=== PATIENT | female | born 1955 | race Caucasian/White ===

== ENCOUNTER 2023-10-17 10:30 | Outpatient (RCR) | payer MEDICARE, OTHER, SELFPAY | END 2023-11-07 15:06 | disposition home or self-care (01) | LOC: PT 10:30 | PROVIDERS: PCP Internal Medicine; Visit Provider Orthopaedic Surgery | DX: M17.12 Unilateral primary osteoarthritis, left knee (principal); Z96.652 Presence of left artificial knee joint; M25.562 Pain in left knee; R26.89 Other abnormalities of gait and mobility; R26.9 Unspecified abnormalities of gait and mobility | CPT/HCPCS: 97110; 97112; 97161 ==

== ENCOUNTER 2023-12-06 07:18 | Outpatient (OUT) | payer MEDICARE, OTHER, SELFPAY ==
--- OUTSIDE RECORDS SUMMARY | 2023-12-06 07:20 | XMS_ITS | CCD ---
Author Name Unknown Address [facility] [place] [id number] Organization [facility] Care Team Providers Care Supervisor Shop Name Role Phone DIAB ., OCTAVIA Admitting Unavailable DIAB ., OCTAVIA Attending Unavailable GRECHNY ., MARY RAMIREZ Consulting Unavailabl e GERALDO, DR RAMIREZ Primary Care Unavailable PAVAN, AMALIA Consulting Unavailable REQUEST, NONE LISTED Admitting Unavaila ble REQUEST, NONE LISTED Attending Unavaila ble GERALDO, DR RAMIREZ Primary Care Unavailable HALIES, DR RAMIREZ Consulting Unavailable REQUEST, NONE LISTED Consulting Unavaila ble JOSSY, DR ALISA Guzman Attending Unavailable CATHLEEN, DR MOUSTAPHA Guzman Consulting Unavailable YUHAS, DR RAMIREZ Primary Care Unavailable JOSSY, DR ALISA Guzman Admitting Unavailable KUNS, DR ALISA Guzman Consulting Unavailable Rubi BERMUDEZ, Delfino Aleman Attending Unavaila ble Yuharey BEDOYA, Ashley Márquez [facility] Unavailab Jaylin BERMUDEZ, Delfino Aleman Attending Unavaila ble Yuhas DO, Ashley Márquez Primary [facility] UnavailSanjeev Pate Consulting Unavailable Rubi BERMUDEZ, Delfino Aleman Admitting Unavaila ble Rubi BERMUDEZ, Delfino Aleman Attending Unavaila ble Yuhas , Ashley Willi [facility] Unavailab ALISA Navarro Attending Unavailable YUJEANNA, ASHLEY Camarena Referring Unavailable ASHLEY CHOW Primary Care Unavailable COSMO MIKE Attending Unavailable Problems Active Problems Problem Classification Problem Date Documented Date Episodic/Chronic Disorders of lipid metabolism (5 sources) Mixed hyperlipidemia; Translations: [MIXED HYPERLIPIDEMIA] Onset: 11-13-2022 Chronic Essential hypertension (2 sources) Essential (primary) hypertension; Translations: [ESSENTIAL PRIMARY HYPERTENSION] Onset: 11-13-2022 Chronic Fluid and electrolyte disorders (1 source) Hypokalemia; Translations: [HYPOKALEMIA] Onset: 04-30-2023 Episodic Genitourinary symptoms and ill-defined conditions (1 source) Unspecified symptoms and signs involving the genitourinary system; Translations: [Unspecified symptoms and signs involving the genitourinary system] Onset: 11-18-2023 Episodic Intestinal infection (1 source) Rotaviral enteritis; Translations: [ROTAVIRAL ENTERITIS] Onset: 04-30-2023 Episodic Nausea and vomiting (3 sources) Nausea with vomiting, unspecified; Translations: [NAUSEA WITH VOMITING UNSPECIFIED] Onset: 04-29-2023 Episodic Other aftercare (1 source) supervisor intermediates (current) use of aspirin; Translations: [CARE HOME CURRENT USE OF ASPIRIN] Onset: 04-30-2023 Episodic Other aftercare (1 source) Other terminal carman (current) drug therapy; Translations: [OTH WORKERS COMPENSATION CLAIMS EXAMINER CURRENT DRUG THERAPY] Onset: 04-30-2023 Episodic Other screening for suspected conditions (not mental disorders or infectious disease) (2 sources) Encounter for screening mammogram for malignant neoplasm of breast; Translations: [ENC SCR MAMMO MALIG NEOPLASM BREAST] Onset: 12-09-2022 Episodic Thyroid disorders (2 sources) Hypothyroidism, unspecified; Translations: [HYPOTHYROIDISM UNSPECIFIED] Onset: 11-13-2022 Chronic Unclassified (1 source) CONTACT W/AND (SUSP) EXPOS COVID-19; Translations: [CONTACT W/AND (SUSP) EXPOS COVID-19] Onset: 04-30-2023 Urinary tract infections (1 source) Urinary tract infectious disease Onset: 11-18-2023 Episodic Past or Other Problems Problem Classification Problem Date Documented Da te Episodic/Chronic Residual codes; unclassified (1 source) Family history of malignant neoplasm of trachea, bronchus and lung; Translations: [FAM HX MALIG NEOPLSM TRACH BRON LNG] Onset: 12-09-2022 Episodic Results Test Name Value Interpretation Reference Range Facility .eGFRon 10-16-2023 GFR/1.73 sq M.predicted MDRD (S/P/Bld) [Vol rate/Area] mL/min/{1.73_m2} Normal >=60 [facility] Comment on above: Result Comment: [facility] have implemented the eGFR calculation approach that does not have a coefficient for race and that conforms to the NKF-ASN Task Force Recommendations. Stages of Chronic Kidney Disease GFR Stage 3a Mild to moderate loss of kidney function 59 to 45 Stage 3b Moderate to severe loss of kidney function 44 to 33 Stage 4 Severe loss of kidney function 29 to 15 Stage 5 Kidney failure Less than 15 GFR calculated using the CKD-Epi Creatinine Equation (2020): eGFR = 142 X min(SCr/?, 1)? X max(SCr /?, 1)-1.200 X 0.9938Age X 1.012 [if female] Abbreviations/Units: eGFR (estimated glomerular filtration rate) = mL/min/1.73 m2 SCr (standardized serum creatinine) = mg/dL ? = 0.7 (females) or 0.9 (males) ? = -0.241 (females) or -0.302 (males) min = indicates the minimum of SCr/? or 1 max = indicates the maximum of SCr/? or 1 Age = years Performed By: #### E GFR #### [address] [address] Basic Metabolic Profileon Anion gap [Moles/Vol] 9 mmol/L Normal 7-17 [facility] Comment on above: Performed By: #### C [id number] #### [address] [address] Calcium [Mass/Vol] 8.7 mg/dL Normal 8.5-10.3 [facility] Comment on above: Performed By: #### C [id number] #### [address] [address] Chloride [Moles/Vol] 106 mmol/L Normal 98-110 [facility] Comment on above: Performed By: #### C [id number] #### [address] [address] CO2 [Moles/Vol] 24 mmol/L Normal 22-32 [facility] Comment on above: Performed By: #### C [id number] #### [address] [address] Creatinine [Mass/Vol] 0.65 mg/dL Normal 0.44-1.03 [facility] Comment on above: Performed By: #### C [id number] #### [address] [address] Glucose [Mass/Vol] 161 mg/dL High 70-99 [facility] Comment on above: Performed By: #### C [id number] #### [address] [address] Potassium [Moles/Vol] 4.3 mmol/L Normal 3.4-4.8 [facility] Comment on above: Performed By: #### C [id number] #### [address] [address] Sodium [Moles/Vol] 135 mmol/L Normal 133-142 [facility] Comment on above: Performed By: #### C [id number] #### [address] [address] Urea nitrogen [Mass/Vol] 15 mg/dL Normal 8-26 [facility] Comment on above: Performed By: #### C [id number] #### [address] [address] Urea nitrogen/Creatinine [Mass ratio] 23.1 mg/mg High 10.0-20.0 [facility] Comment on above: Performed By: #### C [id number] #### [address] [address] CBC w/ Diffon 10-16-2023 Erythrocyte distribution width (RBC) [Ratio] 12.7 % Normal 11.6-14.8 [facility] Comment on above: Performed By: #### C BC #### [address] [address] Hematocrit (Bld) [Volume fraction] 35.2 % Low 36.0-46.0 [facility] Comment on above: Performed By: #### C BC #### [address] [address] Hemoglobin (Bld) [Mass/Vol] 11.9 g/dL Low 12.0-16.0 [facility] Comment on above: Performed By: #### C BC #### [address] [address] MCH (RBC) [Entitic mass] 30.9 pg Normal 27.0-35.0 [facility] Comment on above: Performed By: #### C BC #### [address] [address] MCHC 33.7 % Normal 31.0-37.0 [facility] Comment on above: Performed By: #### C BC #### [address] [address] MCV (RBC) [Entitic vol] 91.6 fL Normal 80.0-100.0 [facility] Comment on above: Performed By: #### C BC #### [address] [address] Platelet 277 x10*3/mcL Normal 150-450 [facility] Comment on above: Performed By: #### C BC #### [address] [address] Platelet mean volume (Bld) [Entitic vol] 7.9 fL Normal 6.7-10.6 [facility] Comment on above: Performed By: #### C BC #### [address] [address] RBC 3.84 x10*6/mcL Normal 3.80-5.20 [facility] Comment on above: Performed By: #### C BC #### [address] [address] WBC 20.7 x10*3/mcL High 4.5-11.0 [facility] Comment on above: Performed By: #### C BC #### [address] [address] Diff Autoon 10-16-2023 Baso Absolute 0.0 x10*3/mcL Normal 0.0-0.2 [facility] Comment on above: Performed By: #### . Automated Diff #### [address] [address] Basophils/100 WBC (Bld) 0.2 % Normal 0.0-1.5 [facility] Comment on above: Performed By: #### . Automated Diff #### [address] [address] Eos Absolute 0.0 x10*3/mcL Normal 0.0-0.4 [facility] Comment on above: Performed By: #### . Automated Diff #### [address] [address] Eosinophils/100 WBC (Bld) 0.0 % Normal 0.0-5.4 [facility] Comment on above: Performed By: #### . Automated Diff #### [address] [address] Lymph Absolute 0.9 x10*3/mcL Low 1.0-4.8 [facility] Comment on above: Performed By: #### . Automated Diff #### [address] [address] Lymphocytes/100 WBC (Bld) 4.3 % Low 27.2-40.8 [facility] Comment on above: Performed By: #### . Automated Diff #### [address] [address] Lamar Absolute 0.6 x10*3/mcL Normal 0.1-1.1 [facility] Comment on above: Performed By: #### . Automated Diff #### [address] [address] Monocytes/100 WBC (Bld) 2.8 % Low 3.7-11.9 [facility] Comment on above: Performed By: #### . Automated Diff #### [address] [address] Neutro Absolute 19.2 x10*3/mcL High 1.8-7.7 [facility] Comment on above: Performed By: #### . Automated Diff #### [address] [address] Neutro Auto 92.7 % High 47.2-70.8 [facility] Comment on above: Performed By: #### . Automated Diff #### [facility] [address] [place] [address] Inpatient Clinical Summaryon 10-16-2023 Inpatient Clinical Summary [facility] [address] [place] [address] [address] Clinical Summary Person Information Name: Makenzie Miller Age: 67 Years : 1955 Sex: Female PCP: Ashley Chow DO Marital Status: Phone: PCP: [phone] Race: White Ethnicity: Not or Language: East Timorese Visit Id: Visit Reason: Speciality: Acuity: Enc Type: Observation Med Service: Surgery Arrival: 10/15/2023 07:07:27 Discharge: Dispo Type: Address: [address] [place] [phone] Diagnosis: Status post total left knee replacement Discharged To: Home Treatments: Devices/Equipment: Professional Skilled Services: Special Services and Community Resources: Mode of Discharge Transportation: Discharge Orders Activity Restrictions Activity as tolerated-follow precautions. Activity Restrictions Continue to use your walker, crutches or cane as instructed by your physical therapist. Your therapist will tell you when you can discontinue use of walking aids. For many patients walking aids are needed only for the first few days after surgery. Activity Restrictions Exercise twice a day using the exercises on the therapy instructions sheet. It is good to continue this exercise regimen indefinitely. Activity Restrictions Walking is the best form of exercise. Begin with 15 minutes 3-4 times per day. Increase your walking time as tolerated. Activity Restrictions Continue to wear the anti-embolic (ANA) stockings 22-24 hours per day for 4 weeks as tolerable. Activity Restrictions If the stockings are extremely uncomfortable and intolerable, you may discontinue them. You may use nate bandage wrapped from foot to mid-thigh Activity Restrictions Sexual activity may resume when comfortable within range of motion precautions. Discharge Patient Education Review and attach ORTHO Ruib Hip/Knee Inpatient Discharge Special Instructions Bruising may occur in the thigh for knee replacement patients. Do not be alarmed if this occurs. Discharge Special Instructions Common symptoms after total joint replacement surgery include: redness, bruising, drainage, or swelling at the incision site. If there symptoms progressively worsen and do not subside after rest, elevating and icing, please contact your doctor. Discharge Special Instructions You may use your cooling device continuously with a cloth between the cuff and your skin. Alternatively, apply ice to operative area 20 minutes per hour while awake. Apply cloth between ice and skin for protection. Discharge Special Instructions Patient should attempt to control pain with Tylenol and Anti-Inflammatory (if prescribed) initially. If pain is not controlled then use narcotic pain medication. Discharge Special Instructions Maintain a reasonable weight to avoid stress on your hip or knee and other joints. Discharge Special Instructions Inform all doctors who are treating you, including your dentist that you have a total joint implant. Some long-term precautions may need to be taken. Discharge Special Instructions Avoid all dental procedures and cleanings for 90 days after your surgery. Discharge Special Instructions If your dentist feels manipulation of your gum/teeth may introduce bacteria into your blood, they will need to prescribe antibiotics. Discharge Special Instructions Watch for these warning sign/symptoms and call your doctor if any occurs: Trouble breathing or shortness of breath; Prolonged nausea or vomiting; Chills or fever above 101 degrees F; Pain getting worse or not being helped by pain medication. Discharge Wound Care Leave the Mepilex bandage in place for one week after your surgery, then remove. Then replace with extra dressing given at time of discharge and leave intact until follow up appointment. Allergies No Known Allergies Functional Status: Sensory Deficits: None History of Falls: Mobility Assistance Prior to Admission: ADLs: Independent Gait: Steady Ambulation Assist: Assistive Device: Special Orthopedic Devices: Current Level of Assistance for Self-Care/Mobility: Cognitive Status: Orientation: Orientation Assessment Oriented x 4 Level of Consciousness: Alert Characteristics of Speech: Clear Aspiration Risk: None Affect/Behavior: Appropriate, Calm, Cooperative Laboratory or Other Results This Visit (last charted value for your 10/15/2023 visit) Hematology 10/16/2023 5:14 AM WBC: 20.7 x10 RBC: 3.84 x10 Neutro Auto: 92.7 % -- Normal range between ( 47.2 and 70.8 ) Lymph Auto: 4.3 % -- Normal range between ( 27.2 and 40.8 ) Lamar Auto: 2.8 % -- Normal range between ( 3.7 and 11.9 ) Eos Auto: 0.0 % -- Normal range between ( 0.0 and 5.4 ) Basophil Auto: 0.2 % -- Normal range between ( 0.0 and 1.5 ) Baso Absolute: 0.0 x10 MCV: 91.6 fL -- Normal range between ( 80.0 and 100.0 ) MCHC: 33.7 % -- Normal r (more content not included)... Normal [facility] Orthopedic Progress Noteon 1 12-16-2022 Orthopedic Progress Note Orthopedic: Postoperative day #1 status post left total knee replacement Subjective: Patient states that they're doing quite well with no specific complaints at this time. Patient wishes at this time to be discharged to home. Objective: The patient's dressings is dry. Range of motion of the left knee is 0-100. There is no signs of drop foot. There is no sign of DVT or infection. Patient has good pedal pulse, and capillary refill is less than 2 seconds. Vital Signs (last 24 hrs) Last Charted Temp Oral 36.6 degC (OCT 16:) Heart Rate Peripheral 89 bpm (OCT 16:) Resp Rate 16 br/min (OCT 16:) SBP 131 mmHg (OCT 16:00) DBP 61 mmHg (OCT 16:) SpO2 95 % (OCT 16:) Weight 72 kg (OCT 16:) Height 160.02 cm (OCT 15 13:51) BMI 26.92 (OCT 15 13:51) Labs (Last four charted values) WBC H 20.7 (OCT 16) Hgb L 11.9 (OCT 16) Hct L 35.2 (OCT 16) Plt 277 (OCT 16) Na 135 (OCT 16) K 4.3 (OCT 16) CO2 24 (OCT 16) Cl 106 (OCT 16) Cr 0.65 (OCT 16) BUN 15 (OCT 16) Physical Therapy Results Event Name Event Result Date/Time Ambulation Distance 24 10/16/23 06:00:00 Ambulation Distance 24 10/16/23 03:00:00 Ambulation Distance 200 10/15/23 18:00:00 Ambulation Distance 30 10/15/23 16:00:00 Assessment: Status post left total knee replacement Plan: At this time we plan to discharge the patient home. The patient will be discharged to home with assistance from family and friends. All other questions have been answered to the patient's satisfaction. The patient will follow-up in 10-[address] Cota or myself. Electronically signed by Sanjeev Gallardo PA-C 10/16/23 07:41 EST Normal [facility] .eGFRon 09-25-2023 GFR/1.73 sq M.predicted MDRD (S/P/Bld) [Vol rate/Area] mL/min/{1.73_m2} Normal >=60 [facility] Comment on above: Result Comment: [facility] have implemented the eGFR calculation approach that does not have a coefficient for race and that conforms to the NKF-ASN Task Force Recommendations. Stages of Chronic Kidney Disease GFR Stage 3a Mild to moderate loss of kidney function 59 to 45 Stage 3b Moderate to severe loss of kidney function 44 to 33 Stage 4 Severe loss of kidney function 29 to 15 Stage 5 Kidney failure Less than 15 GFR calculated using the CKD-Epi Creatinine Equation (2020): eGFR = 142 X min(SCr/?, 1)? X max(SCr /?, 1)-1.200 X 0.9938Age X 1.012 [if female] Abbreviations/Units: eGFR (estimated glomerular filtration rate) = mL/min/1.73 m2 SCr (standardized serum creatinine) = mg/dL ? = 0.7 (females) or 0.9 (males) ? = -0.241 (females) or -0.302 (males) min = indicates the minimum of SCr/? or 1 max = indicates the maximum of SCr/? or 1 Age = years Performed By: #### E GFR #### [address] [address] CBC w/ Diffon 09-25-2023 Erythrocyte distribution width (RBC) [Ratio] 12.6 % Normal 11.6-14.8 [facility] Comment on above: Performed By: #### C BC #### [address] [address] Hematocrit (Bld) [Volume fraction] 41.6 % Normal 36.0-46.0 [facility] Comment on above: Performed By: #### C BC #### [address] [address] Hemoglobin (Bld) [Mass/Vol] 14.4 g/dL Normal 12.0-16.0 [facility] Comment on above: Performed By: #### C BC #### [address] [address] MCH (RBC) [Entitic mass] 32.1 pg Normal 27.0-35.0 [facility] Comment on above: Performed By: #### C BC #### [address] [address] MCHC 34.6 % Normal 31.0-37.0 [facility] Comment on above: Performed By: #### C BC #### [address] [address] MCV (RBC) [Entitic vol] 92.9 fL Normal 80.0-100.0 [facility] Comment on above: Performed By: #### C BC #### [address] [address] Platelet 294 x10*3/mcL Normal 150-450 [facility] Comment on above: Performed By: #### C BC #### [address] [address] Platelet mean volume (Bld) [Entitic vol] 7.7 fL Normal 6.7-10.6 [facility] Comment on above: Performed By: #### C BC #### [address] [address] RBC 4.47 x10*6/mcL Normal 3.80-5.20 [facility] Comment on above: Performed By: #### C BC #### [address] [address] WBC 8.1 x10*3/mcL Normal 4.5-11.0 [facility] Comment on above: Performed By: #### C BC #### [address] [address] CMPon 09-25-2023 Albumin [Mass/Vol] 4.3 g/dL Normal 3.2-4.9 [facility] Comment on above: Performed By: #### C OMP #### [address] [address] Albumin/Globulin [Mass ratio] 1.4 {ratio} Normal 1.1-2.2 [facility] Comment on above: Performed By: #### C OMP #### [address] [address] Alk Phos 50 IU/L Normal 32-91 [facility] Comment on above: Performed By: #### C OMP #### [address] [address] ALT [Catalytic activity/Vol] 19 U/L Normal 14-54 [facility] Comment on above: Performed By: #### C OMP #### [address] [address] Anion gap [Moles/Vol] 10 mmol/L Normal 7-17 [facility] Comment on above: Performed By: #### C OMP #### [address] [address] AST [Catalytic activity/Vol] 16 U/L Normal 15-41 [facility] Comment on above: Performed By: #### C OMP #### [address] [address] Bili Total 1.1 mg/dL Normal 0.3-1.2 [facility] Comment on above: Performed By: #### C OMP #### [address] [address] Calcium [Mass/Vol] 9.5 mg/dL Normal 8.5-10.3 [facility] Comment on above: Performed By: #### C OMP #### [address] [address] Chloride [Moles/Vol] 106 mmol/L Normal 98-110 [facility] Comment on above: Performed By: #### C OMP #### [address] [place] [address] CO2 [Moles/Vol] 28 mmol/L Normal 22-32 [facility] Comment on above: Performed By: #### C OMP #### [address] [address] Creatinine [Mass/Vol] 0.73 mg/dL Normal 0.44-1.03 [facility] Comment on above: Performed By: #### C OMP #### [address] [address] Glucose [Mass/Vol] 95 mg/dL Normal 70-99 [facility] Comment on above: Performed By: #### C OMP #### [address] [address] Potassium [Moles/Vol] 4.5 mmol/L Normal 3.4-4.8 [facility] Comment on above: Performed By: #### C OMP #### [address] [address] Protein [Mass/Vol] 7.3 g/dL Normal 6.5-8.1 [facility] Comment on above: Performed By: #### C OMP #### [address] [place] [address] Sodium [Moles/Vol] 140 mmol/L Normal 133-142 [facility] Comment on above: Performed By: #### C OMP #### [address] [place] [address] Urea nitrogen [Mass/Vol] 16 mg/dL Normal 8-26 [facility] Comment on above: Performed By: #### C OMP #### [address] [address] Urea nitrogen/Creatinine [Mass ratio] 21.9 mg/mg High 10.0-20.0 [facility] Comment on above: Performed By: #### C OMP #### [address] [address] Diff Autoon 09-25-2023 Baso Absolute 0.0 x10*3/mcL Normal 0.0-0.2 [facility] Comment on above: Performed By: #### . Automated Diff #### [address] [address] Basophils/100 WBC (Bld) 0.4 % Normal 0.0-1.5 [facility] Comment on above: Performed By: #### . Automated Diff #### [address] [address] Eos Absolute 0.2 x10*3/mcL Normal 0.0-0.4 [facility] Comment on above: Performed By: #### . Automated Diff #### [address] [address] Eosinophils/100 WBC (Bld) 2.0 % Normal 0.0-5.4 [facility] Comment on above: Performed By: #### . Automated Diff #### [address] [address] Lymph Absolute 1.7 x10*3/mcL Normal 1.0-4.8 [facility] Comment on above: Performed By: #### . Automated Diff #### [address] [address] Lymphocytes/100 WBC (Bld) 21.5 % Low 27.2-40.8 [facility] Comment on above: Performed By: #### . Automated Diff #### [address] [address] Lamar Absolute 0.6 x10*3/mcL Normal 0.1-1.1 [facility] Comment on above: Performed By: #### . Automated Diff #### [address] [address] Monocytes/100 WBC (Bld) 6.8 % Normal 3.7-11.9 [facility] Comment on above: Performed By: #### . Automated Diff #### [address] [address] Neutro Absolute 5.6 x10*3/mcL Normal 1.8-7.7 [facility] Comment on above: Performed By: #### . Automated Diff #### [address] [address] Neutro Auto 69.3 % Normal 47.2-70.8 [facility] Comment on above: Performed By: #### . Automated Diff #### [address] [address] CBC AUTO DIFFon 04-29-2023 BASO # 0.0 103/ul Normal 0.0-0.1 [facility] Comment on above: Performed By: #### C BC ####[facility] [address] [place], [place] [address]Dr. Roxi Núñez Basophils/100 WBC (Bld) 0.2 % Normal 0.2-2.0 [facility] Comment on above: Performed By: #### C BC ####[facility] [address] [place], [place] [address]DrDaisy Núñez EO # 0.0 103/ul Normal 0.0-0.7 [facility] Comment on above: Performed By: #### C BC ####[facility] [address] [place], [place] [address]DrDaisy Núñez Eosinophils/100 WBC (Bld) 0.0 % Critically low 0.9-7.0 [facility] Comment on above: Performed By: #### C BC ####[facility] [address] [place], [place] [address]DrDaisy Núñez Erythrocyte distribution width (RBC) [Ratio] 12.2 % Normal 11.0-15.0 [facility] Comment on above: Performed By: #### C BC ####[facility] [address] [place], [place] [address]DrDaisy Núñez Hematocrit (Bld) [Volume fraction] 43.0 % Normal 36.0-48.0 [facility] Comment on above: Performed By: #### C BC ####[facility] [address] [place] [address]DrDaisy Еленаorlando Núñez Hemoglobin (Bld) [Mass/Vol] 14.4 g/dL Normal 12.0-16.0 [facility] Comment on above: Performed By: #### C BC ####[facility] [address] [place], [place] [address]DrDaisy Núñez IG # 0.02 10e3/ul Normal 0.00-0.03 [facility] Comment on above: Performed By: #### C BC ####[facility] Bvs[address] [place], [place] [address]DrDaisy Núñez IG % 0.2 % Normal 0.0-0.5 [facility] Comment on above: Performed By: #### C BC ####[facility] Fnbnnunw[address] [place], [place] [address]DrDaisy Núñez LYMPH # 0.5 103/ul Critically low 1.2-3.8 [facility] Comment on above: Performed By: #### C BC ####[facility] Xkbiohclnc[address] [place], [place] [address]DrDaisy Núñez Lymphocytes/100 WBC (Bld) 5.0 % Critically low 20.5-60.0 [facility] Comment on above: Performed By: #### C BC ####[facility] Iiqafhized[address] [place], [place] [address]DrDaisy Núñez MANUAL DIFF REQ NO Normal [facility] Comment on above: Performed By: #### C BC ####[facility] Cnxkuyzz[address] [place], [place] [address]DrDaisy Núñez MCH (RBC) [Entitic mass] 30.6 pg Normal 26.7-34.0 [facility] Comment on above: Performed By: #### C BC ####[facility] Wulwicnjfs[address] [place], [place] [address]DrDaisy Núñez MCHC (RBC) [Mass/Vol] 33.5 g/dL Normal 29.9-35.2 [facility] Comment on above: Performed By: #### C BC ####[facility] [address] [place] [id number]. Roxi Núñez MCV (RBC) [Entitic vol] 91.3 fL Normal 81.0-99.0 [facility] Comment on above: Performed By: #### C BC ####[facility] Abmzzvm[address] [place], [place] [address]DrDaisy Núñez MONO # 1.1 103/ul Critically high 0.3-0.8 [facility] Comment on above: Performed By: #### C BC ####[facility] Llefwssvwl[address] [place], [place] [address]DrDaisy Núñez Monocytes/100 WBC (Bld) 10.5 % Normal 1.7-12.0 [facility] Comment on above: Performed By: #### C BC ####[facility] Vchinyvyqb[address] [place], [place] [address]Dr. oRxi Núñez NEUT # 8.4 103/ul Critically high 1.4-6.5 [facility] Comment on above: Performed By: #### C BC ####[facility] Tbdolisuoo[address] [place], [place] [address]Dr. Roxi Núñez Neutrophils/100 WBC (Bld) 84.1 % Critically high 43.0-75.0 [facility] Comment on above: Performed By: #### C BC ####[facility] Qgwxxonmis[address] [place], [place] [address]Dr. Roxi Núñez Platelet mean volume (Bld) [Entitic vol] 9.4 fL Critically low 9.5-13.5 [facility] Comment on above: Performed By: #### C BC ####[facility] K[address] [place], [place] [id number]. Roxi Núñez PLT 253 103/ul Normal 150-450 [facility] Comment on above: Performed By: #### C BC ####[facility] [address]ksl[address] [place], [place] [address]Dr. Roxi Núñez RBC 4.71 106/ul Normal 4.20-5.40 [facility] Comment on above: Performed By: #### C BC ####[facility] [address] [place] [address]DrDaisy Núñez WBC 10.0 103/ul Normal 4.0-11.0 [facility] Comment on above: Performed By: #### C BC ####[facility] [address] [place] [address]Dr. Roxi Núñez Covid-19 PCR (CVDTBH)on 04-02 SARS-CoV-2 (COVID-19) RNA ANNIKA+probe Ql (Unsp spec) Not detected Normal NOT DETECTED [facility] Comment on above: Performed By: #### C VDTB #### [facility] [address] [place] [address] Dr. Roxi Núñez ER URINE PROFILEon 3 Bilirubin Ql (U) Negative Normal NEGATIVE [facility] Comment on above: Performed By: #### JADEN VILLALBARO #### [facility] [address] [place] [address] Dr. Roxi Núñez Clarity (U) SL CLOUDY Abnormal CLEAR [facility] Comment on above: Performed By: #### NOBLE VILLALBAICRO #### [facility] [address] [place] [address] Dr. Roxi Núñez Color (U) YELLOW Normal YELLOW [facility] Comment on above: Performed By: #### JADEN VILLALBARO #### [facility] [address] [place] [address] Dr. Roxi ARENAS A micrscopic examination will be performed if indicated. Normal [facility] Comment on above: Performed By: #### JADEN VILLALBARO #### [facility] [address] [place] [address] Dr. Roxi Núñez Glucose Ql (U) Negative Normal NEGATIVE [facility] Comment on above: Performed By: #### JADEN VILLALBARO #### [facility] [address] [place] [address] Dr. Roxi Núñez Hemoglobin Ql (U) LARGE Abnormal NEGATIVE [facility] Comment on above: Performed By: #### Virgil KEVIN UMICRO #### [facility] [address] [place] [address] Dr. Roxi Núñez Ketones Ql (U) Negative Normal NEGATIVE [facility] Comment on above: Performed By: #### Virgil KEVIN UMICRO #### [facility] [address] [place] [address] Dr. Roxi Núñez LEUKOCYTES Negative Normal NEGATIVE [facility] Comment on above: Performed By: #### Virgil KEVIN UMICRO #### [facility] [address] [place] [address] Dr. Roxi Núñez Nitrite Ql (U) Negative Normal NEGATIVE [facility] Comment on above: Performed By: #### Virgil KEVIN UMICRO #### [facility] [address] [place] [address] Dr. Roxi Núñez pH (U) 5.5 [pH] Normal 5-9 [facility] Comment on above: Performed By: #### Virgil KEVIN UMICRO #### [facility] [address] [place] [address] Dr. Roxi Núñez Protein (U) [Mass/Vol] 30 mg/dL Abnormal NEGATIVE/ TRACE [facility] Comment on above: Performed By: #### Virgil KEVIN UMICRO #### [facility] [address] [place] [address] Dr. Roxi Núñez SPEC GRAVITY 1.030 Abnormal 1.005-<=1.025 [facility] Comment on above: Performed By: #### Virgil KEVIN UMICRO #### [facility] [address] [place] [address] Dr. Roxi Núñez UR MICRO IND INDICATED Normal [facility] Comment on above: Performed By: #### Virgil KEVIN UMICRO #### [facility] [address] [place] [address] Dr. Roxi Núñez Urobilinogen Qn (U) 0.2 {Bg'U}/dL Normal 0.2 - 1. 0 [facility] Comment on above: Performed By: #### E FABBY KEVIN #### [facility] [address] [place] [address] [address] Roxi Núñez GI PANEL (PCR)on 04-29-2023 Adenovirus F 40/41 Not detected Normal NOT DETECTED [facility] Comment on above: Performed By: #### G IPANEL ####[facility] [address] [place] [address]Dr. Roxi Núñez Astrovirus Not detected Normal NOT DETECTED [facility] Comment on above: Performed By: #### G IPANEL ####[facility] [address] [place] [address]Dr. Roxi Núñez C. Diff toxin A/B Not detected Normal NOT DETECTED [facility] Comment on above: Performed By: #### G IPANEL ####[facility] [address] [place] [address]Dr. Roxi Núñez Campylobacter Not detected Normal NOT DETECTED The [facility] Comment on above: Performed By: #### G IPANEL ####[facility] [address] [place] [address]Dr. Roxi Núñez Cryptosporidium Not detected Normal NOT DETECTED The [facility] Comment on above: Performed By: #### G IPANEL ####[facility] [address] [place] [address]Dr. Roxi Núñez Cyclos. Cayetanensis Not detected Normal NOT DETECTED [facility] Comment on above: Performed By: #### G IPANEL ####[facility] [address] [place] [address]Dr. Roxi Núñez E. Coli O157 Not Applicable Normal Not Applicable [facility] Comment on above: Performed By: #### G IPANEL ####[facility] [address] [place] [address]Dr. Roxi Núñez E. histolytica Not detected Normal NOT DETECTED The [facility] Comment on above: Performed By: #### G IPANEL ####[facility] I[address] [place], [place] [address]Dr. Roxi Núñez EAEC Not detected Normal NOT DETECTED [facility] Comment on above: Performed By: #### G IPANEL ####[facility] Plsfrrfzgz[address] [place], [place] [address]Dr. Roxi Núñez EIEC Not detected Normal NOT DETECTED [facility] Comment on above: Performed By: #### G IPANEL ####[facility] Xtodouojmi[address] [place], [place] [address]Dr. Roxi Núñez EPEC Not detected Normal NOT DETECTED [facility] Comment on above: Performed By: #### G IPANEL ####[facility] Tiboqoogui[address] [place], [place] [address]Dr. Roxi Núñez ETEC Not detected Normal NOT DETECTED [facility] Comment on above: Performed By: #### G IPANEL ####[facility] Wvmhjovpr[address] [place], [place] [address]Dr. Roxi Núñez G. Lamblia Not detected Normal NOT DETECTED [facility] Comment on above: Performed By: #### G IPANEL ####[facility] [address] [place], [place] [address]Dr. Roxi Núñez GIPHONORHEALTH REHABILITATION HOSPITALL CONTROLS PASSED Normal The [facility] Comment on above: Performed By: #### G IPANEL ####[facility] Uematsyjlh[address] [place], [place] [address]Dr. Roxi [facility] HEADER GI PANEL BACTERIA Normal [facility] Comment on above: Performed By: #### G IPANEL ####[facility] Ucaulvufxp[address] [place], [place] [address]Dr. Roxi [facility] ECOLI GI PANEL DIARRHEAGENIC E.COLI / SHIGELLA Normal [facility] Comment on above: Performed By: #### G IPANEL ####[facility] Btzwnencoz[address] [place], [place] [address]Dr. Roxi [facility]NL[facility] INFO SEE BELOW Normal [facility] Comment on above: Result Comment: EAEC - Enteroaggregative E. Coli EPEC- Enteropathogenic E. Coli ETEC- Enterotoxigenic E. Coli lt/st STEC- Shigella-like toxin-producing E. Coli stx1/stx2 EIEC- Shigella/Enteroinvasive E. Coli Performed By: #### G IPANEL ####[facility] [address]otlb[address] [place], [place] [address]Dr. Roxi Núñez GIPNLHD PARASITES GI PANEL PARASITES Normal [facility] Comment on above: Performed By: #### G IPANEL ####[facility] Flwadpdah[address] [place], [place] [address]Dr. Roxi Núñez GIPNLHD VIRUS GI PANEL VIRUSES Normal The [facility] Comment on above: Performed By: #### G IPANEL ####[facility] [address]uz[address] [place], [place] [address]Dr. Roxi [facility] Norovirus GI/GII Not detected Normal NOT DETECTED [facility] Comment on above: Performed By: #### G IPANEL ####[facility] Pjtjhkc[address] [place], [place] [address]Dr. Roxi Núñez P. Shigelloides Not detected Normal NOT DETECTED [facility] Comment on above: Performed By: #### G IPANEL ####[facility] H[address]wdshvm[address] [place], [place] [address]Dr. Roxi Núñez Rotavirus A Detected Abnormal NOT DETECTED The [facility] Comment on above: Performed By: #### G IPANEL ####[facility] Fmpytsetex[address] [place], [place] [address]Dr. Roxi Nñúez Salmonella Not detected Normal NOT DETECTED [facility] Comment on above: Performed By: #### G IPANEL ####[facility] Qnpscexwzn[address] [place], [place] [address]Dr. Roxi Núñez Sapovirus Not detected Normal NOT DETECTED [facility] Comment on above: Performed By: #### G IPANEL ####[facility] Ifc[address]rtnw[address] [place], [place] [address]Dr. Roxi Núñez STEC Not detected Normal NOT DETECTED [facility] Comment on above: Performed By: #### G IPANEL ####[facility] Qgszxletxy[address] [place], [place] [address]Dr. Roxi Núñez Vibrio Not detected Normal NOT DETECTED [facility] Comment on above: Performed By: #### G IPANEL ####[facility] [address] [place] [address]DrDaisy Núñez Vibrio Cholera Not detected Normal NOT DETECTED [facility] Comment on above: Performed By: #### G IPANEL ####[facility] [address] [place] [address]DrDaisy Núñez Y. Enterocolitica Not detected Normal NOT DETECTED [facility] Comment on above: Performed By: #### G IPANEL ####[facility] [address] [place] [address]DrDaisy Núñez LACTATE/LACTIC ACIDon 2022 Lactate [Moles/Vol] 2.6 mmol/L Critically high 0.4-2.0 [facility] Comment on above: Performed By: #### L ACT #### [facility] [address] [place] [address] [address] Roxi Núñez LIPASEon 04-29-2023 Lipase [Catalytic activity/Vol] 51.0 U/L Critically low 73.0-393.0 [facility] Comment on above: Performed By: #### L IPA, CMP, HSTROPN #### [facility] [address] [address] [address] Roxi Núñez PROF 14(COMP METB)on 023 Albumin [Mass/Vol] 3.5 g/dL Normal 3.4-5.0 [facility] Comment on above: Performed By: #### L IPA, CMP, HSTROPN #### [facility] [address] [address] [address] Roxi Núñez Albumin/Globulin [Mass ratio] 0.9 {ratio} Normal [facility] Comment on above: Performed By: #### L IPA, CMP, HSTROPN #### [facility] [address] [address] [address] Roxi Núñez ALP [Catalytic activity/Vol] 64 U/L Normal 46-116 [facility] Comment on above: Performed By: #### L IPA, CMP, HSTROPN #### [facility] [address] [address] [address] Roxi Núñez ALT [Catalytic activity/Vol] 27 U/L Normal 14-59 [facility] Comment on above: Performed By: #### L IPA, CMP, HSTROPN #### [facility] [address] [address] [address] Roxi Núñez Anion gap [Moles/Vol] 13.9 mmol/L Normal [facility] Comment on above: Performed By: #### L IPA, CMP, HSTROPN #### [facility] [address] [address] [address] Roxi Núñez AST [Catalytic activity/Vol] 19 U/L Normal 15-37 [facility] Comment on above: Performed By: #### L IPA, CMP, HSTROPN #### [facility] [address] [place] [address] Dr. Roxi Núñez Bilirubin [Mass/Vol] 0.4 mg/dL Normal 0.2-1.0 [facility] Comment on above: Performed By: #### L IPA, CMP, HSTROPN #### [facility] [address] [address] [address] Roxi Núñez Calcium [Mass/Vol] 8.7 mg/dL Normal 8.5-10.1 [facility] [place] Comment on above: Performed By: #### L IPA, CMP, HSTROPN #### [facility] [address] [place] [address] Dr. Roxi Núñez Chloride [Moles/Vol] 99 mmol/L Normal 98-107 [facility] Comment on above: Performed By: #### L IPA, CMP, HSTROPN #### [facility] [address] [address] [address] Roxi Núñez CO2 [Moles/Vol] 23.2 mmol/L Normal 21.0-32.0 The [facility] Comment on above: Performed By: #### L IPA, CMP, HSTROPN #### [facility] [address] [address] [address] Roxi Núñez Creatinine [Mass/Vol] 0.95 mg/dL Normal 0.55-1.02 [facility] Comment on above: Performed By: #### L IPA, CMP, HSTROPN #### [facility] [address] [address] [address] Roxi Núñez EGFR-AF ARMENIAN >60 Normal >=60 [facility] Comment on above: Performed By: #### L IPA, CMP, HSTROPN #### [facility] [address] [address] [address] Roxi Núñez EGFR-NON AF ARMENIAN 59 mL/min/1.73m2 Critically low >=60 [facility] Comment on above: Performed By: #### L IPA, CMP, HSTROPN #### [facility] [address] [place] [address] Dr. Roxi Núñez Globulin (S) [Mass/Vol] 3.9 g/dL Normal [facility] Comment on above: Performed By: #### L IPA, CMP, HSTROPN #### [facility] [address] [place] [address] Dr. Roxi Núñez Glucose [Mass/Vol] 122 mg/dL Critically high 74-106 [facility] Comment on above: Performed By: #### L IPA, CMP, HSTROPN #### [facility] [address] [address] [address] Roxi Núñez Potassium [Moles/Vol] 3.1 mmol/L Critically low 3.5-5.1 [facility] Comment on above: Performed By: #### L IPA, CMP, HSTROPN #### [facility] [address] [address] [address] Roxi Núñez Protein [Mass/Vol] 7.4 g/dL Normal 6.4-8.2 [facility] [place] Comment on above: Performed By: #### L IPA, CMP, HSTROPN #### [facility] [address] [place] [address] Dr. Roxi Núñez Sodium [Moles/Vol] 133 mmol/L Critically low 136-145 [facility] Comment on above: Performed By: #### L IPA, CMP, HSTROPN #### [facility] [address] [address] [address] Roxi Núñez Urea nitrogen [Mass/Vol] 17.0 mg/dL Normal 7.0-18.0 [facility] Comment on above: Performed By: #### L IPA, CMP, HSTROPN #### [facility] [address] [address] [address] Roxi Núñez Urea nitrogen/Creatinine [Mass ratio] 17.9 mg/mg Normal [facility] Comment on above: Performed By: #### L IPA, CMP, HSTROPN #### [facility] [address] [address] [address] Roxi Núñez SYMPTOMATIC COVID-19 ANTIGEN on 04-29-2023 EUA Statement SEE BELOW Normal [facility] Comment on above: Result Comment: This test has not been FDA cleared or approved, but has been authorized by the FDA under an Emergency Use Authorization (EUA) for use by authorized laboratories certified under CLIA that meet the requirements to perform moderate or high complexity testing. This test has been authorized only for the detection of proteins from SARS-CoV-2, not for any other viruses or pathogens. The emergency use of this test is authorized for the duration of the declaration that circumstances exist justifying the authorization of emergency use of in vitro diagnostic tests for detection and/or diagnosis of Covid-19 under section 564(b)(1) of the Act, 21 U.S.C. 360bbb-3(b)(1), unless the declaration is terminated or authorization is revoked sooner. Performed By: #### C VDAGS ####[facility] [address] [place] [id number]. Roxi Núñez SARS-CoV-2 (COVID-19) RNA ANNIKA+probe Ql (Unsp spec) Negative Normal NEGATIVE [facility] Comment on above: Performed By: #### C VDAGS ####[facility] [address] [place] [id number]. Roxi Núñez TROPONIN, HIGH SENSITIVITYon 04-29-2023 HSTROP 5.6 pg/mL Normal 4.0-51.3 [facility] Comment on above: Result Comment: CUT- OFF POINTS HAVE BEEN ESTABLISHED BASED ON THE FOURTH UNIVERSAL DEFINITIONS OF MYOCARDIAL INFARCTION. THE UPPER REFERENCE LIMIT (URL) OF TROPONIN, DEFINED THE 99TH PERCENTILE OF cTnI DISTRIBUTION IN A REFERENCE POPULATION, HAS BEEN CONFIRMED THE DECISION THRESHOLD FOR [place] DIAGNOSIS. Performed By: #### L IPA, CMP, HSTROPN #### [facility] [address] [place] [address] Dr. Roxi Núñez URINE MICROSCOPIC ONLYon BACTERIA NONE SEEN Normal NONE SEEN [facility] Comment on above: Performed By: #### E RUR, UMICRO #### [facility] [address] [place] [address] Dr. Roxi Núñez Bacteria identified Cx Nom (U) NOT INDICATED Normal [facility] Comment on above: Performed By: #### E RUR, UMICRO #### [facility] [address] [place] [address] Dr. Roxi Núñez CAST SEEN Abnormal NONE SEEN [facility] Comment on above: Performed By: #### E RUR, UMICRO #### [facility] [address] [place] [address] Dr. Roxi Núñez Crystals LM Nom (Urine sed) NONE SEEN Normal NONE SEEN [facility] Comment on above: Performed By: #### E RUR, UMICRO #### [facility] [address] [place] [address] Dr. Roxi Núñez Epithelial cells LM Ql (Urine sed) FEW Abnormal NONE SEEN /RARE [facility] Comment on above: Performed By: #### E RUR, UMICRO #### [facility] [address] [place] [address] Dr. Roxi Núñez MUCOUS MODERATE Abnormal NONE SEEN [facility] Comment on above: Performed By: #### E SAFIAR, UMICRO #### [facility] [address] [place] [address] Dr. Roxi Núñez RBC 5-10 Abnormal 0-2 [facility] Comment on above: Performed By: #### E RUR, UMICRO #### [facility] [address] [place] [address] Dr. Roxi Núñez WBC NONE SEEN Normal NONE SEEN [facility] Comment on above: Performed By: #### E RUR, UMICRO #### [facility] [address] [place], [place] [address] Dr. Roxi Núñez XR ABD FLAT UP_PA Piero 04-29 XR ABD FLAT UP_PA CH EXAM: XR ABD FLAT UP_PA CH HISTORY: NAUSEA WITH VOMITING COMPARISON: None. TECHNIQUE: PA chest and 2 views of the abdomen FINDINGS: The lung parenchyma is free of consolidation or infiltrate. No pneumothorax or pleural effusion. The cardiac, mediastinal and hilar contours are normal. Scattered calcifications throughout the abdomen that appear within the stool, however, 3.5 mm calcification overlies the medial aspect of the left renal bed. Scattered pelvic phleboliths. Bowel gas pattern is nonobstructed. Air within the rectum. No free intraperitoneal air. The osseous structures exhibit no gross acute abnormality. IMPRESSION: Scattered calcifications throughout the abdomen that appear within the stool, however, 3.5 mm calcification overlies the medial aspect of the left renal bed. Electronically authenticated by: AMALIA BROWNE Date: 2023-04-29 15:09 Normal [facility] FREE T4on 12-05-2022 Free T4 [Mass/Vol] 1.16 ng/dL Normal 0.76-1.46 [facility] Comment on above: Performed By: #### F T4 #### [facility] [address] [place], [place] [address] Dr. Roxi Núñez LIPID PROFILEon 12-05-2022 CHOL-HDL RATIO NORM SEE BELOW Normal [facility] Comment on above: Result Comment: 3.3 - 4.4 LOW RISK 4.4 - 7.1 AVERAGE RISK 7.1 - 11.0 MODERATE RISK >11.0 HIGH RISK Performed By: #### T SH, CMP, LIPID ####[facility] [address] [place], [place] [address]VzDr. Roxi Núñez Cholesterol [Mass/Vol] 153 mg/dL Normal <=200 [facility] Comment on above: Performed By: #### T SH, CMP, LIPID ####[facility] [address] [place], [place] [address]AmDaisy Núñez Cholesterol in HDL [Mass/Vol] 71 mg/dL Critically high 40-60 [facility] Comment on above: Performed By: #### T SH, CMP, LIPID ####[facility] [address] [place] [address]Dr. Roxi Núñez Cholesterol in LDL [Mass/Vol] 67.8 mg/dL Normal [facility] Comment on above: Performed By: #### T SH, CMP, LIPID ####[facility] [address] [address]Dr. Roxi Núñez Cholesterol.total/C holesterol in HDL [Mass ratio] 2.2 {ratio} Normal [facility] Comment on above: Performed By: #### T SH, CMP, LIPID ####[facility] [address] [place] [address]Dr. Roxi Núñez HDL NORMAL > or = 60 mg/dl - LO W CARDIOVASCULAR RISK <40 mg/dl - HIGH CARDIOVASCULAR RISK Normal [facility] Comment on above: Performed By: #### T TANIA, CMP, LIPID ####[facility] [address] [place] [address]Dr. Roxi Núñez LDL CALC NORMAL SEE BELOW Normal [facility] Comment on above: Result Comment: <100 mg/dl OPTIMAL 100 - 129 mg/dl NEAR OR ABOVE OPTIMAL 130 - 159 mg/dl BORDERLINE HIGH 160 - 189 mg/dl HIGH >190 mg/dl VERY HIGH Performed By: #### T SH, CMP, LIPID ####[facility] [address] [place] [address]Dr. Roxi Núñez Triglyceride [Mass/Vol] 71 mg/dL Normal <=150 [facility] Comment on above: Performed By: #### T SH, CMP, LIPID ####[facility] [address] [place] [id number]. Roxi Núñez VLDL CALC 14.2 mg/dL Normal [facility] Comment on above: Performed By: #### T SH, CMP, LIPID ####[facility] [address] [place] [address]Dr. Roxi Núñez MG MAMM SCREEN 3D ANISHA CADon 12-05-2022 MG MAMM SCREEN 3D ANISHA CAD Patient: MILLER, MAKENZIE Baptiste Exam Date: 12/05/2022 : 1955 Gender:F Ordering : DR ALISA FENTON Admission #: [id number] Family : Order #: [id number] CLICK HERE TO VIEW EXAM RADIOLOGY REPORT PROCEDURE: MAMMOGRAM SCREENING 3D BILATERAL CAD COMPARISON: MG MAMM SCREEN ANISHA W CAD, 09/27/2020. MG MAMM SCREEN ANISHA W CAD, 09/17/2019. MG MAMM SCREEN ANISHA W CAD, 08/26/2017. MG MAMM SCREEN 3D ANISHA CAD, 12/07/2021. INDICATIONS: Screening mammography Calculator Name NCI Breast Cancer Risk Assessment Tool 5 Year Breast Cancer Risk 1.40% Lifetime Breast Cancer Risk 5.10% Personal Breast Cancer No Personal Ovarian Cancer No Treatments None Family Cancers Mother with lung cancer at age 47; Father with lung cancer at age 80. LOCATION: [facility] BREAST COMPOSITION: Heterogeneously dense,which may obscure small masses. FINDINGS: DIAGNOSTIC CATEGORY 1--NEGATIVE. RIGHT BREAST: No significant suspicious finding. No significant change has occurred. LEFT BREAST: No significant suspicious finding. No significant change has occurred. RECOMMENDATIONS: ROUTINE MAMMOGRAM AND CLINICAL EVALUATION IN 12 MONTHS. PLEASE NOTE: A NORMAL MAMMOGRAM DOES NOT EXCLUDE THE POSSIBILITY OF BREAST CANCER. A CLINICALLY SUSPICIOUS PALPABLE LUMP SHOULD BE BIOPSIED. Dictated by: Moustapha Greco M.D. on 2022 at 13:24 Approved by: Moustapha Greco M.D. on 2022 at 13:27 Normal [facility] PROF 14(COMP METB)on 023 Albumin [Mass/Vol] 3.8 g/dL Normal 3.4-5.0 [facility] [place] Comment on above: Performed By: #### T SH, CMP, LIPID ####[facility] [address] [place], [place] [address]QjDaisy Núñez Albumin/Globulin [Mass ratio] 1.1 {ratio} Normal [facility] Comment on above: Performed By: #### T SH, CMP, LIPID ####[facility] [address] [place], [place] [address]UtDaisy Núñez ALP [Catalytic activity/Vol] 57 U/L Normal 46-116 [facility] Comment on above: Performed By: #### T SH, CMP, LIPID ####[facility] [address] [place] [address]Dr. Roxi Núñez ALT [Catalytic activity/Vol] 20 U/L Normal 14-59 [facility] Comment on above: Performed By: #### T SH, CMP, LIPID ####[facility] [address]clm[address]54[address] [place] [address]Dr. Roxi Núñez Anion gap [Moles/Vol] 10.5 mmol/L Normal [facility] Comment on above: Performed By: #### T SH, CMP, LIPID ####[facility] [address] [place] [address]Dr. Roxi Núñez AST [Catalytic activity/Vol] 13 U/L Critically low 15-37 [facility] Comment on above: Performed By: #### T SH, CMP, LIPID ####[facility] F[address]ar[address] [place] [address]Dr. Roxi Núñez Bilirubin [Mass/Vol] 0.9 mg/dL Normal 0.2-1.0 [facility] Comment on above: Performed By: #### T SH, CMP, LIPID ####[facility] [address] [place], [place] [address]Dr. Roxi Núñez Calcium [Mass/Vol] 9.1 mg/dL Normal 8.5-10.1 [facility] [place] Comment on above: Performed By: #### T SH, CMP, LIPID ####[facility] [address] [place] [address]Dr. Roxi Núñez Chloride [Moles/Vol] 105 mmol/L Normal 98-107 [facility] Comment on above: Performed By: #### T SH, CMP, LIPID ####[facility] [address] [place] [address]Dr. Roxi Núñez CO2 [Moles/Vol] 29.6 mmol/L Normal 21.0-32.0 [facility] Comment on above: Performed By: #### T SH, CMP, LIPID ####[facility] [address] [place] [address]Dr. Roxi Núñez Creatinine [Mass/Vol] 0.60 mg/dL Normal 0.55-1.02 [facility] Comment on above: Performed By: #### T SH, CMP, LIPID ####[facility] [address] [place] [address]Dr. Roxi Núñez EGFR-AF ARMENIAN >60 Normal >=60 [facility] Comment on above: Performed By: #### T SH, CMP, LIPID ####[facility] [address] [place] [address]Dr. Roxi [place] EGFR-NON AF ARMENIAN >60 Normal >=60 [facility] Comment on above: Performed By: #### T SH, CMP, LIPID ####[facility] [address] [place] [address]Dr. Roxi Núñez Globulin (S) [Mass/Vol] 3.6 g/dL Normal [facility] Comment on above: Performed By: #### T SH, CMP, LIPID ####[facility] [address] [place] [address]Dr. Roxi Núñez Glucose [Mass/Vol] 94 mg/dL Normal 74-106 [facility] Comment on above: Performed By: #### T SH, CMP, LIPID ####[facility] [address] [place] [address]Dr. Roxi Núñez Potassium [Moles/Vol] 4.1 mmol/L Normal 3.5-5.1 [facility] Comment on above: Performed By: #### T SH, CMP, LIPID ####[facility] [address] [place] [address]Dr. Roxi Núñez Protein [Mass/Vol] 7.4 g/dL Normal 6.4-8.2 [facility] Comment on above: Performed By: #### T SH, CMP, LIPID ####[facility] [address] [place] [address]Dr. Roxi Núñez Sodium [Moles/Vol] 141 mmol/L Normal 136-145 [facility] Comment on above: Performed By: #### T SH, CMP, LIPID ####[facility] [address] [place] [address]Dr. Roxi Núñez Urea nitrogen [Mass/Vol] 16.0 mg/dL Normal 7.0-18.0 [facility] Comment on above: Performed By: #### T SH, CMP, LIPID ####[facility] [address] [place], [place] [address]Rs. Roxi Núñez Urea nitrogen/Creatinine [Mass ratio] 26.7 mg/mg Normal [facility] Comment on above: Performed By: #### T SH, CMP, LIPID ####[facility] [address] [place] [phone]. Roxi Núñez TSHon 12-05-2022 TSH 1.335 uIU/mL Normal 0.358-3.740 [facility] Comment on above: Performed By: #### T TANIA, CMP, LIPID ####[facility] [address] [place] [phone]. Roxi Núñez CBC AUTO DIFFon 06-06-2022 BASO # 0.0 103/ul Normal 0.0-0.1 [facility] Comment on above: Performed By: #### D ATCBC #### [facility] [address] [place] [address] [address] Roxi Núñez Basophils/100 WBC (Bld) 0.2 % Normal 0.2-2.0 [facility] Comment on above: Performed By: #### D ATCBC #### [facility] [address] [place] [address] [address] Roxi Núñez EO # 0.1 103/ul Normal 0.0-0.7 [facility] Comment on above: Performed By: #### D ATCBC #### [facility] [address] [place] [address] [address] Roxi Núñez Eosinophils/100 WBC (Bld) 0.6 % Critically low 0.9-7.0 [facility] Comment on above: Performed By: #### D ATCBC #### [facility] [address] [place] [address] [address] Roxi Núñez Erythrocyte distribution width (RBC) [Ratio] 11.8 % Normal 11.0-15.0 [facility] Comment on above: Performed By: #### D ATCBC #### [facility] [address] [place] [address] [address] Roxi Núñez Hematocrit (Bld) [Volume fraction] 39.3 % Normal 36.0-48.0 [facility] Comment on above: Performed By: #### D ATCBC #### [facility] [address] [place] [address] [address] Roxi Núñez Hemoglobin (Bld) [Mass/Vol] 13.1 g/dL Normal 12.0-16.0 [facility] Comment on above: Performed By: #### D ATCBC #### [facility] [address] [place] [address] Dr. Roxi Núñez IG # 0.04 10e3/ul Critically high 0.00-0.03 [facility] Comment on above: Performed By: #### D ATCBC #### [facility] [address] [place] [address] Dr. Roxi Núñez IG % 0.3 % Normal 0.0-0.5 [facility] Comment on above: Performed By: #### D ATCBC #### [facility] [address] [place] [address] Dr. Roxi Núñez LYMPH # 2.8 103/ul Normal 1.2-3.8 [facility] Comment on above: Performed By: #### D ATCBC #### [facility] [address] [place] [address] [address] Roxi Núñez Lymphocytes/100 WBC (Bld) 22.7 % Normal 20.5-60.0 [facility] Comment on above: Performed By: #### D ATCBC #### [facility] [address] [place] [address] [address] Roxi Núñez MCH (RBC) [Entitic mass] 30.7 pg Normal 26.7-34.0 [facility] Comment on above: Performed By: #### D ATCBC #### [facility] [address] [place] [address] Dr. Roxi Núñez MCHC (RBC) [Mass/Vol] 33.3 g/dL Normal 29.9-35.2 [facility] Comment on above: Performed By: #### D ATCBC #### [facility] [address] [place] [address] [address] Roxi Núñez MCV (RBC) [Entitic vol] 92.0 fL Normal 81.0-99.0 [facility] Comment on above: Performed By: #### D ATCBC #### [facility] [address] [place] [address] Dr. Roxi Núñez MONO # 0.9 103/ul Critically high 0.3-0.8 [facility] Comment on above: Performed By: #### D ATCBC #### [facility] [address] [place] [address] Dr. Roxi Núñez Monocytes/100 WBC (Bld) 7.5 % Normal 1.7-12.0 [facility] Comment on above: Performed By: #### D ATCBC #### [facility] [address] [place] [address] Dr. Roxi Núñez NEUT # 8.5 103/ul Critically high 1.4-6.5 [facility] Comment on above: Performed By: #### D ATCBC #### [facility] [address] [place] [address] Dr. Roxi Núñez Neutrophils/100 WBC (Bld) 68.7 % Normal 43.0-75.0 [facility] Comment on above: Performed By: #### D ATCBC #### [facility] [address] [place] [address] Dr. Roxi Núñez Platelet mean volume (Bld) [Entitic vol] 9.0 fL Critically low 9.5-13.5 [facility] Comment on above: Performed By: #### D ATCBC #### [facility] [address] [place] [address] Dr. Roxi Núñez PLT 350 103/ul Normal 150-450 [facility] Comment on above: Performed By: #### D ATCBC #### [facility] [address] [place] [address] Dr. Roxi Núñez RBC 4.27 106/ul Normal 4.20-5.40 [facility] Comment on above: Performed By: #### D ATCBC #### [facility] [address] [place] [address] [address] Roxi Núñez WBC 12.4 103/ul Critically high 4.0-11.0 [facility] Comment on above: Performed By: #### D ATCBC #### [facility] [address] [place] [address] [address] Roxi Núñez DAYAMI- BMP WITH LIPIDon 2021 Anion gap [Moles/Vol] 13.2 mmol/L Normal [facility] Comment on above: Performed By: #### D ATBMP ####[facility] [address] [place] [address]DrDaisy Núñez Calcium [Mass/Vol] 9.2 mg/dL Normal 8.5-10.1 [facility] [place] Comment on above: Performed By: #### D ATBMP ####[facility] [address] [place] [address]DrDaisy Núñez Chloride [Moles/Vol] 103 mmol/L Normal 98-107 [facility] Comment on above: Performed By: #### D ATBMP ####[facility] [address] [place] [phone]. Roxi Núñez Cholesterol [Mass/Vol] 134 mg/dL Normal <=200 [facility] Comment on above: Performed By: #### D ATBMP ####[facility] [address] [place] [address]DrDaisy Núñez Cholesterol in HDL [Mass/Vol] 60 mg/dL Normal 40-60 [facility] Comment on above: Performed By: #### D ATBMP ####[facility] [address] [place] [phone] Núñez Cholesterol in LDL [Mass/Vol] 62.2 mg/dL Normal [facility] Comment on above: Performed By: #### D ATBMP ####[facility] [address] [place] [phone] Núñez CO2 [Moles/Vol] 27.5 mmol/L Normal 21.0-32.0 [facility] Comment on above: Performed By: #### D ATBMP ####[facility] [address] [place] [address]Dr. Roxi [place] Creatinine [Mass/Vol] 0.75 mg/dL Normal 0.55-1.02 [facility] Comment on above: Performed By: #### D ATBMP ####[facility] [address] [place] [phone]. Roxi [place] EGFR-AF ARMENIAN >60 Normal >=60 [facility] Comment on above: Performed By: #### D ATBMP ####[facility] [address] [place] [phone]. Roxi Núñez EGFR-NON AF ARMENIAN >60 Normal >=60 [facility] Comment on above: Performed By: #### D ATBMP ####[facility] [address] [place] [address]Dr. Roxi Núñez Glucose [Mass/Vol] 100 mg/dL Normal 74-106 [facility] [place] Comment on above: Performed By: #### D ATBMP ####[facility] [address] [place] [phone]. Roxi Núñez HDL NORMAL > or = 60 mg/dl - LO W CARDIOVASCULAR RISK <40 mg/dl - HIGH CARDIOVASCULAR RISK Normal [facility] Comment on above: Performed By: #### D ATBMP ####[facility] [address] [place], [place] [address]Dr. Roxi Núñez LDL CALC NORMAL SEE BELOW Normal [facility] Comment on above: Result Comment: <100 mg/dl OPTIMAL 100 - 129 mg/dl NEAR OR ABOVE OPTIMAL 130 - 159 mg/dl BORDERLINE HIGH 160 - 189 mg/dl HIGH >190 mg/dl VERY HIGH Performed By: #### D ATBMP ####[facility] [address] [place] [phone]. Roxi Núñez Potassium [Moles/Vol] 3.7 mmol/L Normal 3.5-5.1 [facility] Comment on above: Performed By: #### D ATBMP ####[facility] [address] [place], [place] [address]Yt. Roxi Núñez Sodium [Moles/Vol] 140 mmol/L Normal 136-145 [facility] [place] Comment on above: Performed By: #### D ATBMP ####[facility] [address]fts[address] [place], [place] [address]Oq. Roxi Núñez Triglyceride [Mass/Vol] 59 mg/dL Normal <=150 [facility] Comment on above: Performed By: #### D ATBMP ####[facility] [address] [place] [phone]. Roxi Núñez Urea nitrogen [Mass/Vol] 14.0 mg/dL Normal 7.0-18.0 [facility] Comment on above: Performed By: #### D ATBMP ####[facility] [address] [place] [phone]. Roxi Núñez Urea nitrogen/Creatinine [Mass ratio] 18.7 mg/mg Normal [facility] Comment on above: Performed By: #### D ATBMP ####[facility] [address] [place] [phone]. Roxi Núñez VLDL CALC 11.8 mg/dL Normal [facility] Comment on above: Performed By: #### D ATBMP ####[facility] [address] [place] [phone]. Roxi Núñez COMPREHENSIVE METABOLIC PANE Mario 05-11-2021 Albumin [Mass/Vol] 4.1 g/dL Normal 3.6-5.1 [facility] Comment on above: Performed By: #### 7 600, [address]778 #### [facility] [address], [address] [place], [place] [address] Telephone Messenger: Luis Barbour MD Albumin/Globulin [Mass ratio] 1.6 {ratio} Normal 1.0-2.5 [facility] Comment on above: Performed By: #### 7 600, 68955 #### [facility] [address], [address] [place] [phone] Telephone Messenger: Luis Barbour MD ALP [Catalytic activity/Vol] 58 U/L Normal 37-153 [facility] Comment on above: Performed By: #### 7 600, 31834 #### [facility] of [place] [address] Telephone Messenger: Luis Barbour MD ALT [Catalytic activity/Vol] 14 U/L Normal 6-29 [facility] Comment on above: Performed By: #### 7 600, 86289 #### [facility] of [address], [address] [place] [address] Telephone Messenger: Luis Barbour MD AST [Catalytic activity/Vol] 13 U/L Normal 10-35 [facility] Comment on above: Performed By: #### 7 600, 17329 #### [facility] of [place] [address] Telephone Messenger: Luis Barbour MD Bilirubin [Mass/Vol] 0.7 mg/dL Normal 0.2-1.2 [facility] Comment on above: Performed By: #### 7 600, 23719 #### [facility] of [place] [address] Telephone Messenger: Luis Barbour MD BUN/CREATININE RATIO NOT APPLICABLE Normal 6-22 [facility] Comment on above: Performed By: #### 7 600, 50213 #### [facility] of [place] [address] Telephone Messenger: Luis Barbour MD Calcium [Mass/Vol] 9.3 mg/dL Normal 8.6-10.4 [facility] Comment on above: Performed By: #### 7 600, 81907 #### [facility] [place] [address] Telephone Messenger: Luis Barbour MD Chloride [Moles/Vol] 105 mmol/L Normal 98-110 [facility] Comment on above: Performed By: #### 7 600, 84182 #### [facility] of [place] [address] Telephone Messenger: Luis Barbour MD CO2 [Moles/Vol] 29 mmol/L Normal 20-32 [facility] Comment on above: Performed By: #### 7 600, 20878 #### [facility] [place] [address] Telephone Messenger: Luis Barbour MD Creatinine [Mass/Vol] 0.72 mg/dL Normal 0.50-0.99 [facility] Comment on above: Result Comment: For patients >49 years of age, the reference limit for Creatinine is approximately 13% higher for people identified as -Malawian. Performed By: #### 7 600, 59400 #### [facility] [place] [address] Telephone Messenger: Luis Barbour MD eGFR NON-AFR. ARMENIAN 89 mL/min/1.73m2 Normal > OR = 60 [facility] Comment on above: Performed By: #### 7 600, 41746 #### [facility] [place] [address] Telephone Messenger: Luis Barbour MD GFR/1.73 sq M.predicted among blacks MDRD (S/P/Bld) [Vol rate/Area] 103 mL/min/{1.73_m2} Normal > OR = 60 [facility] Comment on above: Performed By: #### 7 600, 94169 #### [facility] [place] [address] Telephone Messenger: Luis Barbour MD Globulin (S) [Mass/Vol] 2.5 g/dL Normal 1.9-3.7 [facility] Comment on above: Performed By: #### 7 600, 19766 #### [facility] [place] [address] Telephone Messenger: Luis Barbour MD Glucose [Mass/Vol] 100 mg/dL High 65-99 [facility] Comment on above: Result Comment: Fasting reference interval For someone without known diabetes, a glucose value between 100 and 125 mg/dL is consistent with prediabetes and should be confirmed with a follow-up test. Performed By: #### 7 600, 37188 #### [facility] of [address], [address] [place] [address] Telephone Messenger: Luis Barbour MD Potassium [Moles/Vol] 4.6 mmol/L Normal 3.5-5.3 [facility] Comment on above: Performed By: #### 7 600, 65888 #### [facility] of [address], [address] [place] [address] Telephone Messenger: Luis Barbour MD Protein [Mass/Vol] 6.6 g/dL Normal 6.1-8.1 [facility] Comment on above: Performed By: #### 7 600, 33008 #### [facility] of [address], [address] [place] [address] Telephone Messenger: Luis Barbour MD Sodium [Moles/Vol] 141 mmol/L Normal 135-146 [facility] Comment on above: Performed By: #### 7 600, 47760 #### [facility] of [address], [address] [place] [address] Telephone Messenger: Luis Barbour MD Urea nitrogen [Mass/Vol] 18 mg/dL Normal 7-25 [facility] Comment on above: Performed By: #### 7 600, 75053 #### [facility] of [place] [address] Telephone Messenger: Luis Barbour MD LIPID PANEL, [facility] 05-02 0 Cholesterol [Mass/Vol] 152 mg/dL Normal <200 [facility] Comment on above: Order Comment: FASTI NG:YES FASTING: YES Performed By: #### 7 600, 16383 #### [facility] of [address], [address] [place] [address] Telephone Messenger: Luis Barbour MD Cholesterol in HDL [Mass/Vol] 56 mg/dL Normal > OR = 50 [facility] Comment on above: Order Comment: FASTI NG:YES FASTING: YES Performed By: #### 7 600, 28290 #### [facility] of [address], [address] [place] [address] Telephone Messenger: Luis Barbour MD Cholesterol in LDL [Mass/Vol] 81 mg/dL Normal [facility] Comment on above: Order Comment: FASTI NG:YES FASTING: YES Result Comment: Refe rence range: <100 Desirable range <100 mg/dL for primary prevention; <70 mg/dL for patients with CHD or diabetic patients with > or = 2 CHD risk factors. LDL-C is now calculated using the Karina calculation, which is a validated novel method providing better accuracy than the Friedewald equation in the estimation of LDL-C. Nicolas SAINZ et al. PASCUAL. 2013;310(19): 6151-1117 (http://education.[employer].Bleachers/faq/LTL748) Performed By: #### 7 600, 38864 #### [facility] [address], [address] [place] [address] Telephone Messenger: Luis Barbour MD Cholesterol.total/C holesterol in HDL [Mass ratio] 2.7 {ratio} Normal <5.0 [facility] Comment on above: Order Comment: FASTI NG:YES FASTING: YES Performed By: #### 7 600, 51533 #### [facility] [address], [address] [place] [address] Telephone Messenger: Luis Barbour MD NON HDL CHOLESTEROL 96 mg/dL (calc) Normal <130 [facility] Comment on above: Order Comment: FASTI NG:YES FASTING: YES Result Comment: For patients with diabetes plus 1 major ASCVD risk factor, treating to a non-HDL-C goal of <100 mg/dL (LDL-C of <70 mg/dL) is considered a therapeutic option. Performed By: #### 7 600, 63496 #### [facility] [address], [address] [place] [address] Telephone Messenger: Luis Barbour MD Triglyceride [Mass/Vol] 72 mg/dL Normal <150 [facility] Comment on above: Order Comment: FASTI NG:YES FASTING: YES Performed By: #### 7 600, 56927 #### [facility] [address], [address] [place] [address] Telephone Messenger: Luis Barbour MD Coding Summary.on 06-16-2020 Coding Summary. CODING DATE: 06/16/2020 FINAL [facility] STATUS: Home (Routine DC) PAYOR: Commercial Insurance ADMIT DX: REASON FOR VISIT DX: Z01.84 Encounter for antibody response examination FINAL DX: PRINCIPAL: Z01.84 Encounter for antibody response examination SECONDARY: Z11.59 Encounter for screening for other viral diseases PYMT PROC APC STAT DESCRIPTION DOCTOR NAME DATE NOTE: The code number assigned matches the documented diagnosis and / or procedure in the patient's chart. However, the narrative phrase printed from the coding software may appear abbreviated, or result in slightly different terminology. Coded By: Audrey May Date Saved: 06/16/2020 07:01 pm [facility] Physician Orderon 05-24-2020 Physician Order [id number]# 1.00CD:127 [facility] Encounters Encounter Date Encounter Type Care Provider Facility Start: 12-04-2023 End: 12-04-2023 ambulatory COSMO MIKE Not Available Start: 11-18-2023 End: 11-18-2023 ambulatory ALISA FENTON [facility] Start: 10-15-2023 End: 10-16-2023 ambulatory Sanjeev Gallardo Facility:Located [facility] Start: 10-09-2023 End: 10-10-2023 ambulatory Delfino Cota MD Facility:[facility] Start: 09-25-2023 End: 09-26-2023 ambulatory Delfino Cota MD Facility:[facility] Start: 04-29-2023 End: 04-29-2023 ambulatory OCTAVIA Villa Facility:[facility] Start: 12-05-2022 End: [address] ALISA FENTON Facility:[facility] Start: 06-06-2022 End: 06-07-2022 ambulatory NONE LISTED REQUEST Facility: Payers Date Payer Category Payer Medicare 2023 Unknown 1957 Medicare [id number] 1957 Self-pay [id number] 1957 Unknown [id number] 1957 Unknown [id number] 1955 Unknown [id number] 2.16.84 [id number] 1957 Unknown [id number] 2.16.84 [id number] 1957 Unknown [id number] 2.16. [id number] 1957 Unknown [id number] 2.16. [id number] 1957 Unknown [id number] 2.16. [id number] 1957 Unknown [id number] 2.16.840 .[id number] 1957 Unknown [id number] 2.16.840 .[id number] Unknown [id number] [id number] [id number] Clinical Note 10-15-2023 Note Date & Type Note Facility 10-15-2023 Note Procedure: Left Tota l knee arthroplasty Implant sizes for this patient's total knee listed below: Arash persona Femur: 9 narrow CR Left Tibia: E left Liner: 12 mm MC vitamin E Patella: Not resurfaced Cement: Refobacin R 0.5g gentamicin 1X40 and Arash Biomet cement without antibiotic 1X40. Preoperative diagnosis: Left knee OA Postoperative diagnosis: Left knee OA Surgeon: Rubi Biometric Fingerprinting Technician: Sanjeev Gallardo, PAC was required to help position the patient, retract intraoperatively and manipulate the leg and assist and reducing and dislocating the total knee components during and throughout the entire operation. Also was required in assistance to do deep closure of the operative site. The other surgical techs were involved on back table working not available to assist and this portion of the operation. Anesthesia: Spinal supplemented with periarticular total joint compound 100ml injection. Complications: None Hemostasis aids: Bovie and Aqua Mantys were used on all appropriate soft tissue bleeding sites achieving very satisfactory hemostasis. EBL: 50 ml Fluids: 1200 ml TXAoral and IA Patellar cut: None Tibial cut: 12 mm off lateral side Femoral cut: 5? valgus Prophylactic antibiotics: Ancef -3 g Tourniquet time: 38 minutes at 225 mmHg Operative Indications: The patient has failed conservative treatment with the above diagnosis. The patient was seen and evaluated in preoperative holding. After discussing the risks, benefits, alternatives, the patient elected to proceed via informed consent on file at [facility]. for a left Total Knee Replacement. Operative Findings: The patient has end-stage osteoarthritis of the left knee with grossly intact patella surface and cartilage to allow for non-resurfaced patella total knee. After insertion of the above components, the patient's knee had full extension and flexion to 125 degrees. There was good patellar balance and patellar tracking, ligamentous balance throughout the range of motion, and a dry capsular closure test. Operative Procedure: The patient was brought into the operating room. Prophylactic antibiotics were given. The patient recieved adequate anesthesia as described above. The patient was carefully positioned supine. The left knee was then prepped and draped in the usual sterile manner. The marked incision was injected with quarter percent plain Marcaine.The leg was exsanguinated by elevation and the tourniquet inflated. The medial parapatellar incision was performed for a medial parapatellar approach to the knee. The medial retinaculum was opened. The quad tendon was incised longitudinally on the medial side for 4-5 cm. Dissection was performed medially along the MCL releasing only the proximal portion at the joint line. The patella was found as above and not resurfaced. The anterior horn of the medial meniscus was removed as well as the infrapatellar and suprapatellar fat pads. Hemostasis was obtained with the Aqua Mantys and Bovie cautery. The intrameduallary canal of the femur was entered after resecting the ACL/PCL. The corresponding valgus guide as referred to the above was used with the femoral cut. This was performed with an oscillating saw protecting the collateral ligaments and the extensor mechanism. Tibial retractors were placed and resection off the tibia was performed as described above. An extramedullary tibial cutting guide and the oscillating saw were used. The tibial plateau fragment was removed along with any remaining meniscal tissue. The PCL was excised. The medial and lateral meniscus was removed and meniscal beds were injected with total joint compound mixture for postoperative pain. The femur was sized and the corresponding cutting block was applied. It was centered on the femur. Anterior and posterior resections were performed as well as chamfers with the oscillating saw. The cutting block was removed. Any excess bone was removed. Posterior osteophytes were excised with a curved osteotome. The knee was trialed. The sizes described above provided the greatest stability and range of motion. The tibial keel/pegs was created in appropriate rotation using the drill and punch. There was excellent hemostasis for cement technique. The tibia was cemented. The femur was then cemented also using the cement gun to improve cement penetration into cancellus bone. The final liner was locked into position on the tibial plate.The tourniquet was released and there was good hemostasis. The cement was allowed to harden and excess cement removed. The retinaculum was closed using interrupted #1 PDS and running bidirectional #2 barbed suture. The capsular closure test was dry. Subcutaneous layer was closed with a running 2-0 V lock barbed suture. The skin was closed using 2-0 barbed running bidirectional suture followed by Mastisol and Steri-Strips. The knee was injected with total joint compound mixture for postoperative pain. Betadine 17.5 ml in 500 ml of normal saline was used intraoperatively for irriga (more content not included)... [facility] Summary Purpose Family History No Family History Records FoundNo Family History Records FoundNo Family History Records FoundNo Family History Records FoundNo Family History Records FoundNo Family History Records Found Advance Directives No Advanced Directives Records FoundNo Advanced Directives Records FoundNo Advanced Directives Records FoundNo Advanced Directives Records FoundNo Advanced Directives Records FoundNo Advanced Directives Records Found Additional Source Comments INFORMATION SOURCE (unrecogn ized section and content) DATE CREATED AUTHOR 06/19/2020 [facility] DATE CREATED AUTHOR AUTHOR'S ORGANIZ ATION 05/12/2021 [facility] DATE CREATED AUTHOR AUTHOR'S ORGANIZ ATION 05/10/2023 [facility] DATE CREATED AUTHOR AUTHOR'S ORGANIZ ATION 10/23/2023 [facility] DATE CREATED AUTHOR AUTHOR'S ORGANIZ ATION 11/21/2023 [facility] DATE CREATED AUTHOR AUTHOR'S ORGANIZ ATION 12/05/2023 [facility] FOR RECORDS PERTAINING TO PATIENTS WHO ARE OR HAVE BEEN ENROLLED IN A CHEMICAL DEPENDENCY/SUBSTANCEABUSE PROGRAM, SOME INFORMATION MAY BE OMITTED. This clinical summary was aggregated from multiple sources. Caution should be exercised in using it in the provision of clinical care. This summary normalizes information from multiple sources, and as a consequence, information in this document may materially change the coding, format and clinical context of patient data. In addition, data may be omitted in some cases. CLINICAL DECISIONS SHOULD BE BASED ON THE PRIMARY CLINICAL RECORDS. [facility] provides no warranty or guarantee of the accuracy or completeness of information in this document.
--- NOTE | 2023-12-06 07:32 | MM_ITS ---
Patient Name: NAVNEET MILLER MR#: [id number] : 1955 Exam Date: 12/06/2023 Ordering Doctor: DR ALISA FENTON RADIOLOGY REPORT PROCEDURE: MM TOMOSYNTHESIS SCREENING BI COMPARISON: MG MAMM SCREEN 3D ANISHA CAD, 12/05/2022. MG MAMM SCREEN 3D ANISHA CAD, 12/07/2021. INDICATIONS: Screening Calculator Name NCI Breast Cancer Risk Assessment Tool 5 Year Breast Cancer Risk 1.40% Lifetime Breast Cancer Risk 4.90% Personal Breast Cancer No Personal Ovarian Cancer No Treatments None Family Cancers Mother with lung cancer at age 47; Father with lung cancer at age 80. LOCATION: [facility] BREAST COMPOSITION: Heterogeneously dense,which may obscure small masses. FINDINGS: DIAGNOSTIC CATEGORY 1--NEGATIVE. NO CHANGE FROM COMPARISON ASSESSMENT. Scattered benign-appearing lymph nodes are present. RIGHT BREAST: No significant suspicious finding. LEFT BREAST: No significant suspicious finding. RECOMMENDATIONS: ROUTINE MAMMOGRAM AND CLINICAL EVALUATION IN 12 MONTHS. PLEASE NOTE: A NORMAL MAMMOGRAM DOES NOT EXCLUDE THE POSSIBILITY OF BREAST CANCER. A CLINICALLY SUSPICIOUS PALPABLE LUMP SHOULD BE BIOPSIED. Dictated by: Bobby Gan MD on 12/06/2023 at 09:04 Approved by: Bobby Gan MD on 12/06/2023 at 09:05
[2023-12-06 11:44] LABS: Free T4 1.26 ng/dL (0.76-1.46)
[2023-12-06 12:22] LABS: Alanine Aminotransferase 22 U/L (14-59); Albumin Level 3.6 g/dL (3.4-5.0); Alkaline Phosphatase 65 U/L (46-116); Anion Gap 6.4; Aspartate Amino Transferase 11 U/L (15-37); BUN Creatinine Ratio 21.4; Bilirubin Total 0.5 mg/dL (0.2-1.0); Calcium 9.6 mg/dL (8.5-10.1); Carbon Dioxide 29.5 mmol/L (21.0-32.0); Chloride 102 mmol/L (98-107); Chol HDL Ratio 2.3; Cholesterol 148 mg/dL (<=200); Estimated GFR (African America >60 (>=60); Estimated GFR (Non-African Ame >60 (>=60); Globulin 3.7 g/dL; Glucose 97 mg/dL (74-106); HDL Cholesterol 63 mg/dL (40-60); Potassium 3.9 mmol/L (3.5-5.1); Sodium 134 mmol/L (136-145); Thyroid Stimulating Hormone 1.117 uIU/mL (0.358-3.740); Total Protein 7.3 g/dL (6.4-8.2); Triglycerides 71 mg/dL (<=150); VLDL CHOLESTEROL 14.2 mg/dL
== END 2023-12-06 07:19 | disposition home or self-care (01) ==
LOC: MAMMO 07:18
PROVIDERS: PCP Internal Medicine; Visit Provider Nurse Practitioner Family
DX: Z12.31 Encounter for screening mammogram for malignant neoplasm of breast (principal); E03.9 Hypothyroidism, unspecified; E78.2 Mixed hyperlipidemia; I10 Essential (primary) hypertension
CPT/HCPCS: 36415; 77063; 77067; 80053; 80061; 84439; 84443

== ENCOUNTER 2024-02-12 11:04 | Outpatient (RCR) | payer MEDICARE, OTHER, SELFPAY | END 2024-04-18 13:14 | disposition home or self-care (01) | LOC: PT 11:04 | PROVIDERS: PCP Internal Medicine; Visit Provider Orthopaedic Surgery | DX: Z47.1 Aftercare following joint replacement surgery (principal); M25.562 Pain in left knee; Z96.652 Presence of left artificial knee joint; M62.89 Other specified disorders of muscle; M76.892 Other specified enthesopathies of left lower limb, excluding foot; M71.22 Synovial cyst of popliteal space [Baker], left knee | CPT/HCPCS: 97010; 97035; 97110; 97140; 97161; G0283 ==

== ENCOUNTER 2024-12-07 07:29 | Outpatient (OUT) | payer MEDICARE, OTHER, SELFPAY ==
[2024-12-07 07:49] LABS: Basophils Absolute Auto 0.1 10^3/uL (0.0-0.1); Basophils Percent Auto 0.7 % (0.2-2.0); Eosinophils Absolute Auto 0.2 10^3/uL (0.0-0.7); Eosinophils Percent Auto 2.6 % (0.9-7.0); Hematocrit 39.4 % (36.0-48.0); Hemoglobin 13.3 g/dL (12.0-16.0); Immature Granulocytes Abs Auto 0.01 10^3/uL (0.00-0.03); Immature Granulocytes Pct Auto 0.1 % (0.0-0.5); Lymphocytes Absolute Auto 1.1 10^3/uL (1.2-3.8); Lymphocytes Percent Auto 15.6 % (20.5-60.0); Mean Corpuscular HGB Conc 33.8 g/dL (29.9-35.2); Mean Corpuscular Hemoglobin 30.9 pg (26.7-34.0); Mean Corpuscular Volume 91.4 fL (81.0-99.0); Mean Platelet Volume 9.2 fL (9.5-13.5); Monocytes Absolute Auto 0.5 10^3/uL (0.3-0.8); Monocytes Percent Auto 6.6 % (1.7-12.0); Neutrophils Absolute Auto 5.2 10^3/uL (1.4-6.5); Neutrophils Percent Auto 74.4 % (43.0-75.0); Platelet Count 300 10^3/uL (150-450); Red Blood Count 4.31 10^6/uL (4.20-5.40); Red Cell Distribution Width 11.4 % (11.0-15.0); White Blood Count 6.9 10^3/uL (4.0-11.0)
[2024-12-07 08:23] LABS: Alanine Aminotransferase 25 U/L (14-59); Albumin Globulin Ratio 1.2; Albumin Level 3.8 g/dL (3.4-5.0); Alkaline Phosphatase 60 U/L (46-116); Anion Gap 10.9; Aspartate Amino Transferase 16 U/L (15-37); BUN Creatinine Ratio 23.7; Bilirubin Total 0.7 mg/dL (0.2-1.0); Carbon Dioxide 29.1 mmol/L (21.0-32.0); Chloride 105 mmol/L (98-107); Chol HDL Ratio 2.1; Cholesterol 148 mg/dL (<=200); Estimated GFR (African America >60 (>=60 mL/min/1.73m^2); Estimated GFR (Non-African Ame >60 (>=60 mL/min/1.73m^2); Globulin 3.2 g/dL; Glucose 93 mg/dL (74-106); HDL Cholesterol 70 mg/dL (40-60); Sodium 141 mmol/L (136-145); Thyroid Stimulating Hormone 1.019 uIU/mL (0.358-3.740); Triglycerides 35 mg/dL (<=150)
[2024-12-07 08:36] LABS: Free T4 1.21 ng/dL (0.76-1.46)
== END 2024-12-07 07:30 | disposition home or self-care (01) ==
LOC: LAB 07:29
PROVIDERS: Visit Provider Nurse Practitioner Family
DX: Z00.00 Encounter for general adult medical examination without abnormal findings (principal); I10 Essential (primary) hypertension; E78.2 Mixed hyperlipidemia; E03.9 Hypothyroidism, unspecified
CPT/HCPCS: 36415; 80053; 80061; 84439; 84443; 85025

== ENCOUNTER 2024-12-08 14:55 | Outpatient (OUT) | payer MEDICARE, OTHER, SELFPAY ==
--- NOTE | 2024-12-08 | MM_ITS ---
Patient Name: NAVNEET MILLER MR#: [id number] : 1955 Exam Date: 12/08/2024 Ordering Doctor: WILLY GARDNER RADIOLOGY REPORT PROCEDURE: MM TOMOSYNTHESIS SCREENING BI COMPARISON: MM TOMOSYNTHESIS SCREENING BI, 12/06/2023. MG MAMM SCREEN 3D ANISHA CAD, 12/05/2022. MG MAMM SCREEN 3D ANISHA CAD, 12/07/2021. MG MAMM SCREEN ANISHA W CAD, 08/26/2017. INDICATIONS: Screening mammogram Calculator Name NCI Breast Cancer Risk Assessment Tool 5 Year Breast Cancer Risk 1.40% Lifetime Breast Cancer Risk 4.80% Personal Breast Cancer No Personal Ovarian Cancer No Treatments None Family Cancers Mother with lung cancer at age 47; Father with lung cancer at age 80. LOCATION: [facility] BREAST COMPOSITION: The breasts are heterogeneously dense,which may obscure small masses. FINDINGS: DIAGNOSTIC CATEGORY 1--NEGATIVE. RIGHT BREAST: No significant suspicious finding. No significant change has occurred. LEFT BREAST: No significant suspicious finding. No significant change has occurred. RECOMMENDATIONS: ROUTINE MAMMOGRAM AND CLINICAL EVALUATION IN 12 MONTHS. PLEASE NOTE: A NORMAL MAMMOGRAM DOES NOT EXCLUDE THE POSSIBILITY OF BREAST CANCER. A CLINICALLY SUSPICIOUS PALPABLE LUMP SHOULD BE BIOPSIED. Dictated by: Moustapha Greco M.D. on 12/08/2024 at 16:43 Approved by: Moustapha Greco M.D. on 12/08/2024 at 16:45
== END 2024-12-08 14:56 | disposition home or self-care (01) ==
LOC: MAMMO 14:55
PROVIDERS: Visit Provider Nurse Practitioner Family
DX: Z12.31 Encounter for screening mammogram for malignant neoplasm of breast (principal); Z80.1 Family history of malignant neoplasm of trachea, bronchus and lung
CPT/HCPCS: 77063; 77067

== ENCOUNTER 2025-02-01 09:54 | Outpatient (OUT) | payer MEDICARE, OTHER, SELFPAY ==
--- NOTE | 2025-02-01 09:57 | XR_ITS ---
The [place] [id number] Patient Name: NAVNEET MILLER MRN: [id number] date: 1955 Sex: F Assigned Patient Location: [facility] Current Patient Location: [facility] Accession/Order Number: [id number] Exam Date: 02/01/2025 17:00 Report Date: 02/01/2025 17:01 At the request of: EMELINA DORANTES Procedure: XR foot RT min 3V RIGHT FOOT - 3 views CLINICAL HISTORY: Pain over second/third metatarsal with lump for 4 months. COMPARISON: None FINDINGS: No focal soft tissue abnormality. No acute bony process is seen. Screw fixation is seen involving the distal fibula. Ankle mortise demonstrate degenerative change. Plantar spurring. Mild degenerative changes of the midfoot and forefoot without bony erosions. XR/XR foot RT min 3V IMPRESSION: SCATTERED DEGENERATIVE CHANGES WITHOUT ACUTE BONY PROCESS. Impression dictated by: Terrence Perez Jr., D.O.02/01/2025 5:01 PM Dictation Location[facility] Electronically authenticated by: [id number] Y Date: 02/01/2025 17:01
--- OUTSIDE RECORDS SUMMARY | 2025-02-01 10:08 | XMS_ITS | CCD ---
Author Organization [facility] Care Team Providers Care [place] Activities Coordinator Name Role Phone DIAB ., OCTAVIA Admitting Unavailable DIAB ., OCTAVIA Attending Unavailable GRECHNY ., MARY RAMIREZ Consulting Unavailabl e GERALDO, DR RAMIREZ Primary Care Unavailable PAVAN, AMALIA Consulting Unavailable REQUEST, NONE LISTED Admitting Unavaila ble REQUEST, NONE LISTED Attending Unavaila ble GERALDO, DR RAMIREZ Primary Care Unavailable GERALDO, DR RAMIREZ Consulting Unavailable REQUEST, NONE LISTED Consulting Unavaila ble KUNKarthik, DR ARIANA Guzman Attending Unavailable CATHLEEN, DR SANCHO Guzman Consulting Unavailable YUJOSEFINA, DR RAMIREZ Primary Care Unavailable JOSSY, DR ARIANA Guzman Admitting Unavailable JOSSY, DR ARIANA Guzman Consulting Unavailable Rubi [place], Delfino Aleman Attending Unavaila ble Yusteves , Ashley Márquez Primary Care Unavailab verena Cota MD, Delfino Aleman Attending Unavaila ble Yuhas , Ashley Márquez Primary Care UnavailSanjeev Pate Consulting Unavailable Rubi [place], Delfino Aleman Admitting Unavaila ble Rubi [place], Delfino Aleman Attending Unavaila ble Yujosefina BEDOYA, Ashley Márquez Primary Care UnavailARIANA West Referring Unavailable ASHLEY CHOW Primary Care Unavailable WILLY GARDNER Referring Unavailable ASHLEY CHOW Primary Care Unavailable Kendra SENIOR CAREGIVER-Willy FRASER Primary Care Provider Ashley Chow MD Primary Care Provider FARIDA MIKE Attending Unavailable Ashley Chow DO Primary Care Provider WILLY GARDNER Attending Unavailable ASHLEY CHOW Referring Unavailable WILLY GARDNER Primary Care Unavailable EMELINA CORCORAN Attending Unavailable WILLY GARDNER Referring Unavailable KENDRAWILLY GÓMEZ Primary Care Unavailable Medications Current Medications Medication Drug Class(es) Dates Sig (Normalized) Sig (Original) alendronic acid 70 mg oral tablet (6 sources) Bisphosphonate Start: 12-11-2024 End: 12-11-2024 take 1 tablet by mouth in the morning alendronate (FOSAMAX) 70 mg tablet Take 1 tablet (70 mg total) by mouth every 7 days. In a.m. with water on empty stomach, nothing else by mouth and remain upright for 30min 12 tablet 3 12/11/2024 Active Start: 12-11-2024 take 1 tablet by claudette th every week alendronate (Fosamax) 70 MG tablet Take 70 mg by mouth once a week 12/11/2024 Active aspirin 81 mg delayed release oral tablet (1 source) Platelet Aggregation Inhibitor, Nonsteroidal Anti-inflammatory Drug Start: 10-15-2023 End: 12-12-2023 take 1 tablet by mouth in the morning aspirin 81 mg Take 1 tablet (81 mg total) by mouth in the morning. 0 10/15/2023 12/12/2023 Discontinued (Therapy completed) cholecalciferol 5500 unt / vitamin k2 0.2 mg oral tablet (11 sources) Vitamin D Start: 11-16-2024 take 137.5-200 ug by mouth once daily vitamin D3-vitamin K2 (DOSOKAP) 137.5-200 mcg tablet Take 1 tablet by mouth Daily at 0300. 90 tablet 3 11/16/2024 Active Start: 11-18-2023 End: 11-11-2024 take 137.5-200 ug by mouth once daily vitamin D3-vitamin K2 (DOSOKAP) 137.5-200 mcg tablet Take 1 tablet by mouth Daily at 0300. 90 tablet 3 11/18/2023 11/11/2024 Discontinued (Reorder) docusate sodium 100 mg oral capsule (1 source) Start: 10-15-2023 End: 12-12-2023 take 1 capsule by mouth in the morning docusate sodium (COLACE) 100 mg capsule Take 1 capsule (100 mg total) by mouth in the morning. 0 10/15/2023 12/12/2023 Discontinued (Therapy completed) hydroCHLOROthiazide 12.5 mg / lisinopril 10 mg oral tablet (20 sources) Thiazide Diuretic, Angiotensin Converting Enzyme Inhibitor Start: 12-23-2024 take 10-12.5 mg by mouth once in the morning lisinopril-hydroC HLOROthiazide (PRINZIDE,ZESTORE TIC) 10-12.5 mg per tablet Indications: Benign essential hypertension TAKE 1 TABLET BY MOUTH EVERY DAY IN THE MORNING 90 tablet 1 12/23/2024 Active Start: 11-21-2024 End: 12-23-2024 take 10-12.5 mg by mouth once in the morning lisinopril-hydroCHLOROthiazide (PRINZIDE,ZESTORETIC) 10-12.5 mg per tablet Indications: Benign essential hypertension Take 0.5 tablets by mouth in the morning. 45 tablet 1 12/11/2024 12/23/2024 Discontinued Start: 11-18-2023 End: 11-17-2024 take 10-12.5 mg by mouth once in the morning lisinopril-hydroCHLOROthiazide (PRINZIDE,ZESTORETIC) 10-12.5 mg per tablet Indications: Benign essential hypertension Take 1 tablet by mouth in the morning. 90 tablet 1 06/24/2024 Active take 1 tablet by claudette th in the morning lisinopril-hydroCHLOROthiazide 10-12.5 M G tablet Take 1 tablet by mouth in the morning. Active End: 11-21-2024 lisinopriL 10 mg tablet 10 m g, hydroCHLOROthiazide 25 mg tablet 25 mg hydrochlorothiazide-lisinopril 11/21/2024 Discontinued (Duplicate Listing) lisinopriL 10 mg tablet 10 mg, hydroCHLOROthiazide 25 mg tablet 25 mg hydrochlorothiazide-lisinopril Active lisinopriL 10 mg tablet 10 mg, hydroCHLOROthiazide 25 mg tablet 25 mg hydrochlorothiazide-lisinopril 0 Active ibuprofen 800 mg oral tablet (1 source) Nonsteroidal Anti-inflammatory Drug Start: 10-15-2023 End: 12-12-2023 take 1 tablet by mouth every eight hours ibuprofen (MOTRIN) 800 mg tablet TAKE 1 TABLET BY MOUTH EVERY 8 HOURS 0 10/15/2023 12/12/2023 Discontinued (Therapy completed) meloxicam 15 mg oral tablet (3 sources) Nonsteroidal Anti-inflammatory Drug Start: 02-06-2023 Mobic 15 MG tablet 1 (one) time each day at the same time. 02/06/2023 Active igjpssaf-ltbo-GT- calcium &mins (THERAGRAN-M) 9 mg iron-400 mcg tablet (3 sources) fmhouytd-vasz-TT -c alcium &mins (THERAGRAN-M) 9 mg iron-400 mcg tablet Take 1 tablet by mouth in the morning. Active omeprazole 20 mg delayed release oral capsule (9 sources) Proton Pump Inhibitor Start: 10-15-2023 End: 12-11-2024 take 2 capsules by mouth once daily before breakfast omeprazole (PriLOSEC) 20 mg capsule Take 2 capsules (40 mg total) by mouth every morning before breakfast. 60 capsule 1 12/12/2023 Active polyethylene glycol 3350 26034 mg powder for oral solution (1 source) Osmotic Laxative Start: 10-15-2023 End: 12-12-2023 polyethylene glycol (GLYCOLAX) 17 gram/dose powder Take 17 g by mouth in the morning. 0 10/15/2023 12/12/2023 Discontinued (Therapy completed) simvastatin 40 mg oral tablet (16 sources) HMG-CoA Reductase Inhibitor Start: 12-23-2024 take 1 tablet by mouth in the morning simvastatin (ZOCOR) 40 mg tablet Indications: Mixed hyperlipidemia TAKE 1 TABLET (40 MG TOTAL) BY MOUTH IN THE MORNING 90 tablet 1 12/23/2024 Active Start: 11-21-2024 End: 12-23-2024 take 1 tablet by mouth in the morning simvastatin (ZOCOR) 40 mg tablet Indications: Mixed hyperlipidemia Take 1 tablet (40 mg total) by mouth in the morning. 90 tablet 1 11/21/2024 12/23/2024 Discontinued Start: 11-18-2023 End: 11-17-2024 take 1 tablet by mouth in the morning simvastatin (ZOCOR) 40 mg tablet Indications: Mixed hyperlipidemia Take 1 tablet (40 mg total) by mouth in the morning. 90 tablet 1 06/24/2024 Active triamcinolone acetonide 0.005 mg/mg topical ointment (10 sources) Corticosteroid Start: 09-24-2019 triamcinolone (KENALOG) 0.5 % ointment Apply to affected area sparingly 2X bid X 1 month, then 2X/wk X 1 month, then 2X/month 30 g 1 09/24/2019 Active Vitamin D-Vitamin K (DosoKap) 5500-200 UNIT-MCG tablet (3 sources) take 1 tablet by mouth once in the morning Vitamin D-Vitamin K (DosoKap) 5500-200 UNIT-MCG tablet Take 1 tablet by mouth in the morning. Active Completed/Discontinued Medications Medication Drug Class(es) Dates Sig (Normalized) Sig (Original) acetaminophen 500 mg oral tablet (8 sources) Start: 10-15-2023 End: 12-11-2024 take 1 tablet by mouth every six hours as needed for pain acetaminophen (TYLENOL EXTRA STRENGTH) 500 mg tablet Take 1 tablet (500 mg total) by mouth every 6 (six) hours as needed for pain. 10/15/2023 12/11/2024 Discontinued (Therapy completed) diclofenac sodium 0.01 mg/mg topical gel (8 sources) Nonsteroidal Anti-inflammatory Drug Start: 12-12-2023 End: 12-11-2024 diclofenac sodium (VOLTAREN) 1 % gel Apply 2 g topically in the morning and 2 g at noon and 2 g in the evening and 2 g before bedtime. 100 g 1 12/12/2023 12/11/2024 Discontinued (Therapy completed) multivit-folic acid (WELLESSE) 400 mcg-200 mg/30 mL liquid liquid (1 source) End: 12-11-2024 multivit-folic acid (WELLESSE) 400 mcg-200 mg/30 mL liquid liquid multivitamin 12/11/2024 Discontinued (Therapy completed) Problems Active Problems Problem Classification Problem Date Documented Date Episodic/Chronic Disorders of lipid metabolism (19 sources) Mixed hyperlipidemia; Translations: [Mixed hyperlipidemia] Onset: 11-13-2022 Chronic Endometriosis (10 sources) Endometriosis (clinical); Translations: [Endometriosis, unspecified] Onset: 11-13-2022 11-13-2022 Chronic Esophageal disorders (2 sources) Gastro-esophageal reflux disease without esophagitis; Translations: [Gastroesophageal reflux disease] Onset: 12-12-2023 12-12-2023 Chronic Essential hypertension (18 sources) Essential (primary) hypertension; Translations: [Benign essential hypertension] Onset: 11-13-2022 11-17-2024 Chronic Fluid and electrolyte disorders (1 source) [...] [NAUSEA WITH VOMITING UNSPECIFIED] Onset: 04-29-2023 Episodic Osteoarthritis (12 sources) Osteoarthritis of left knee joint; Translations: [Unilateral primary osteoarthritis, left knee] Onset: 12-12-2022 12-12-2022 Chronic Other aftercare (1 source) meterman (current) use of aspirin; Translations: [SHELTER CURRENT USE OF ASPIRIN] Onset: 04-30-2023 Episodic Other aftercare (1 source) Other terminal superintendent (current) drug therapy; Translations: [OTH SHELTER CURRENT DRUG THERAPY] Onset: 04-30-2023 Episodic Other and unspecified benign neoplasm (2 sources) Melanocytic nevus of trunk; Translations: [Melanocytic nevi of trunk] 12-30-2024 Episodic Other and unspecified benign neoplasm (2 sources) Dermatofibroma of left lower limb; Translations: [Other benign neoplasm of skin of left lower limb, including hip] 12-30-2024 Episodic Other and unspecified benign neoplasm (2 sources) Dermatofibroma of right lower limb; Translations: [Other benign neoplasm of skin of right lower limb, including hip] 12-30-2024 Episodic Other and unspecified benign neoplasm (2 sources) Senile angioma; Translations: [Hemangioma of skin and subcutaneous tissue] 12-30-2024 Episodic Other and unspecified benign neoplasm (2 sources) Lipoma (clinical); Translations: [Benign lipomatous neoplasm, unspecified] 12-30-2024 Episodic Other connective tissue disease (1 source) History of total knee arthroplasty; Translations: [Presence of left artificial knee joint] 12-12-2023 Chronic Other skin disorders (2 sources) Seborrheic keratosis; Translations: [Other seborrheic keratosis] 12-30-2024 Episodic Other skin disorders (2 sources) Lentiginosis; Translations: [Other melanin hyperpigmentation] 12-30-2024 Episodic Other skin disorders (2 sources) Actinic keratosis; Translations: [Actinic keratosis] 12-30-2024 Episodic Thyroid disorders (12 sources) Hypothyroidism, unspecified; Translations: [Hypothyroidism] Onset: 11-13-2022 11-13-2022 Chronic Unclassified (1 source) CONTACT W/AND (SUSP) EXPOS COVID-19; Translations: [CONTACT W/AND (SUSP) EXPOS COVID-19] Onset: 04-30-2023 Unclassified (1 source) cv / breast exam Onset: 12-11-2024 Past or Other Problems Problem Classification Problem Date Documented Da te Episodic/Chronic Mood disorders (10 sources) Mood disorders Onset: 12-12-2023 Resolved: 01-19-2025 12-12-2023 Other bone disease and musculoskeletal deformities (11 sources) Osteopenia; Translations: [Other specified disorders of bone density and structure, unspecified site] Onset: 04-08-2019 11-13-2022 Episodic Other non-traumatic joint disorders (10 sources) Pain in unspecified knee; Translations: [Pain in joint, lower leg] Onset: 11-13-2022 Resolved: 12-12-2022 12-12-2022 Episodic Other screening for suspected conditions (not mental disorders or infectious disease) (3 sources) Encounter for screening mammogram for malignant neoplasm of breast; Translations: [Patient encounter status] Onset: 12-09-2022 10-02-2024 Episodic Residual codes; unclassified (1 source) Family history of malignant neoplasm of trachea, bronchus and lung; Translations: [FAM HX MALIG NEOPLSM TRACH BRON LNG] Onset: 12-09-2022 Episodic Unclassified (1 source) Onset: 01-19-2025 01-19-2025 Results Test Name Value Interpretation Reference Range Facility No Panel Informationon 12-30 [facility] CBC AND AUTO DIFFon 12-12-19 24 ABSOLUTE BASOPHIL 0.0 X10E9/L Normal 0.0-0.2 [facility] Comment on above: Performed By: #### C BCA #### [facility] ([id number]) [address], [address] [place] [address] ABSOLUTE NEUTROPHIL 7.5 X10E9/L High 1.5-6.6 [facility] Comment on above: Performed By: #### C BCA #### [facility] ([id number]) [address], [address] [place] [address] Basophils/100 WBC (Bld) 0.5 % Normal [facility] Comment on above: Performed By: #### C BCA #### [facility] ([id number]) [address], [address] [place] [address] Eosinophils (Bld) [#/Vol] 0.0 10*3/uL Normal 0.0-0.[address] [facility] Comment on above: Performed By: #### C BCA #### [facility] ([id number]) [address], [address] [place] [address] Eosinophils/100 WBC (Bld) 0.4 % Normal [facility] Comment on above: Performed By: #### C BCA #### [facility] ([id number]) [address], [address] [place] [address] Erythrocyte distribution width (RBC) [Ratio] 12.5 % Normal 11.5-15.[address] [facility] Comment on above: Performed By: #### C BCA #### [facility] ([id number]) [address], [address] [place] [address] Hematocrit (Bld) [Volume fraction] 36.8 % Normal 35-[address] [facility] Comment on above: Performed By: #### C BCA #### [facility] ([id number]) [address], [address] [place] [address] Hemoglobin (Bld) [Mass/Vol] 12.5 g/dL Normal 11.7-15.[address] [facility] Comment on above: Performed By: #### C BCA #### [facility] ([id number]) [address], [address] [place] [address] Lymphocytes (Bld) [#/Vol] 1.2 10*3/uL Normal 1.0-3.[address] [facility] Comment on above: Performed By: #### C BCA #### [facility] ([id number]) [address], [address] [place] [address] Lymphocytes/100 WBC (Bld) 12.3 % Normal [facility] Comment on above: Performed By: #### C BCA #### [facility] ([id number]) [address], [address] [place] [address] MCH (RBC) [Entitic mass] 31.3 pg Normal 27-[address] [facility] Comment on above: Performed By: #### C BCA #### [facility] ([id number]) [address], [address] [place] [address] MCHC (RBC) [Mass/Vol] 33.9 g/dL Normal 32-[address] [facility] Comment on above: Performed By: #### C BCA #### [facility] ([id number]) [address], [address] [place] [address] MCV (RBC) [Entitic vol] 92 fL Normal 80-[address] [facility] Comment on above: Performed By: #### C BCA #### [facility] ([id number]) [address], [address] [place] [address] Monocytes (Bld) [#/Vol] 0.5 10*3/uL Normal 0-0.[address] [facility] Comment on above: Performed By: #### C BCA #### [facility] ([id number]) [address], [address] [place] [address] Monocytes/100 WBC (Bld) 5.8 % Normal [facility] Comment on above: Performed By: #### C BCA #### [facility] ([id number]) [address], [address] [place] [address] Neutrophils/100 WBC (Bld) 81.0 % Normal [facility] Comment on above: Performed By: #### C BCA #### [facility] ([id number]) [address], [address] [place] [address] Platelet mean volume (Bld) [Entitic vol] 7.9 fL Normal 7-[address] [facility] Comment on above: Performed By: #### C BCA #### [facility] ([id number]) [address] [address] Platelets (Bld) [#/Vol] 331 10*3/uL Normal 150-[address] [facility] Comment on above: Performed By: #### C BCA #### [facility] ([id number]) [address] [place] [address] RBC COUNT 3.98 X10E12/L Normal 3.80-5.[address] [facility] Comment on above: Performed By: #### C BCA #### [facility] ([id number]) [address] [place] [address] WBC (Bld) [#/Vol] 9.3 10*3/uL Normal 4.0-11.0 [facility] Comment on above: Performed By: #### C BCA #### [facility] ([id number]) [address] [place] [address] URINE CULTUREon 11-18-2023 Bacteria identified Cx Nom (U) SPECIMEN NOTES URINE RECEIVED WITHOUT PRESERVATIVE CULTURE RESULTS >100,000 ORGANISMS/mL PROTEUS MIRABILIS URINE RECEIVED WITHOUT PRESERVATIVE-DELAYS IN TRANSPORT MAY AFFECT RESULTS.INTERPRET WITH CAUTION AND CLINICAL CORRELATION IS RECOMMENDED. Organism: PROTEUS MIRABILIS Antibiotic Interpretation SIENA Status AMPICILLIN S <=2 F AMP/SULBACTAM S <=2/1 F CEFAZOLIN S 8 F CEFTRIAXONE S <=1 F CIPROFLOXACIN S <=0.25 F GENTAMICIN S <=1 F LEVOFLOXACIN S <=0.12 F NITROFURANTOIN R 128 F PIPERACIL/TAZOBACTAM S <=4 F TOBRAMYCIN S <=1 F TRIMETH/SULFAMETHOXAZ OLE S <=/19 F Susceptible [facility] Comment on above: Performed By: #### 6 30-4 #### [facility] ([id number]) [address], [address] [place] [address] .eGFRon 10-16-2023 GFR/1.73 sq M.predicted MDRD (S/P/Bld) [Vol rate/Area] mL/min/{1.73_m2} Normal >=60 [facility] Comment on above: Result Comment: [facility] Laboratories have implemented the eGFR calculation approach [...] years Performed By: #### E GFR #### [facility] [address] [place] [address] Basic Metabolic Profileon Anion gap [Moles/Vol] 9 mmol/L Normal 7-17 [facility] Comment on above: Performed By: #### C [id number] #### [facility] [address] [place] [address] Calcium [Mass/Vol] 8.7 mg/dL Normal 8.5-10.3 [facility] Comment on above: Performed By: #### C [id number] #### [address] [address] Chloride [Moles/Vol] 106 mmol/L Normal 98-110 [facility] Comment on above: Performed By: #### C [id number] #### [address] [address] CO2 [Moles/Vol] 24 mmol/L Normal 22-32 [facility] Comment on above: Performed By: #### C [id number] #### [address] [address] Creatinine [Mass/Vol] 0.65 mg/dL Normal 0.44-1.03 [facility] Comment on above: Performed By: #### C [id number] #### [address] [address] Glucose [Mass/Vol] 161 mg/dL High 70-99 [facility] Comment on above: Performed By: #### C [id number] #### [address] [address] Potassium [Moles/Vol] 4.3 mmol/L Normal 3.4-4.8 [facility] Comment on above: Performed By: #### C [id number] #### [address] [address] Sodium [Moles/Vol] 135 mmol/L Normal 133-142 [facility] Comment on above: Performed By: #### C [id number] #### [address] [address] Urea nitrogen [Mass/Vol] 15 mg/dL Normal 8-26 [facility] Comment on above: Performed By: #### C [id number] #### [address] [address] Urea nitrogen/Creatinine [Mass ratio] 23.1 mg/mg High 10.0-20.0 [facility] Comment on above: Performed By: #### C [id number] #### [address] [address] CBC w/ Diffon 10-16-2023 Erythrocyte distribution width (RBC) [Ratio] 12.7 % Normal 11.6-14.8 [facility] Comment on above: Performed By: #### C BC #### [address] [address] Hematocrit (Bld) [Volume fraction] 35.2 % Low 36.0-46.0 [facility] Comment on above: Performed By: #### C BC #### [address] [address] Hemoglobin (Bld) [Mass/Vol] 11.9 g/dL Low 12.0-16.0 [facility] Comment on above: Performed By: #### C BC #### [address] [address] MCH (RBC) [Entitic mass] 30.9 pg Normal 27.0-35.0 [facility] Comment on above: Performed By: #### C BC #### [address] [address] MCHC 33.7 % Normal 31.0-37.0 [facility] Comment on above: Performed By: #### C BC #### [address] [address] MCV (RBC) [Entitic vol] 91.6 fL Normal 80.0-100.0 [facility] Comment on above: Performed By: #### C BC #### [address] [address] Platelet 277 x10*3/mcL Normal 150-450 [facility] Comment on above: Performed By: #### C BC #### [address] [address] Platelet mean volume (Bld) [Entitic vol] 7.9 fL Normal 6.7-10.6 [facility] Comment on above: Performed By: #### C BC #### [address] [address] RBC 3.84 x10*6/mcL Normal 3.80-5.20 [facility] Comment on above: Performed By: #### C BC #### [address] [address] WBC 20.7 x10*3/mcL High 4.5-11.0 [facility] Comment on above: Performed By: #### C BC #### [address] [address] Diff Autoon 10-16-2023 Baso Absolute 0.0 x10*3/mcL Normal 0.0-0.2 [facility] Comment on above: Performed By: #### . Automated Diff #### [address] [address] Basophils/100 WBC (Bld) 0.2 % Normal 0.0-1.5 [facility] Comment on above: Performed By: #### . Automated Diff #### [address] [address] Eos Absolute 0.0 x10*3/mcL Normal 0.0-0.4 [facility] Comment on above: Performed By: #### . Automated Diff #### [address] [address] Eosinophils/100 WBC (Bld) 0.0 % Normal 0.0-5.4 [facility] Comment on above: Performed By: #### . Automated Diff #### [address] [address] Lymph Absolute 0.9 x10*3/mcL Low 1.0-4.8 [facility] Comment on above: Performed By: #### . Automated Diff #### [address] [address] Lymphocytes/100 WBC (Bld) 4.3 % Low 27.2-40.8 [facility] Comment on above: Performed By: #### . Automated Diff #### [address] [address] [place] Absolute 0.6 x10*3/mcL Normal 0.1-1.1 [facility] Comment on above: Performed By: #### . Automated Diff #### [address] [address] Monocytes/100 WBC (Bld) 2.8 % Low 3.7-11.9 [facility] Comment on above: Performed By: #### . Automated Diff #### [address] [address] Neutro Absolute 19.2 x10*3/mcL High 1.8-7.7 [facility] Comment on above: Performed By: #### . Automated Diff #### [address] [address] Neutro Auto 92.7 % High 47.2-70.8 [facility] Comment on above: Performed By: #### . Automated Diff #### [address] [address] Inpatient Clinical Summaryon 10-16-2023 Inpatient Clinical Summary [address] [address] [place] [address] Clinical Summary Person Information Name: Makenzie Miller Age: 67 Years : 1955 Sex: Female PCP: Ashley Chow DO Marital Status: Phone: PCP: [phone] Race: White Ethnicity: Not or Language: Cuban Visit Id: Visit Reason: Speciality: Acuity: Enc Type: Observation Med Service: Surgery Arrival: 10/15/2023 07:07:27 Discharge: Dispo Type: Address: [address] [place] [id number] Diagnosis: Status post total left knee replacement [...] Discharge Patient Education Review and attach [facility] Hip/Knee Inpatient Discharge Special Instructions Bruising may [...] range between ( 27.2 and 40.8 ) [place] Auto: 2.8 % -- Normal range between [...] Normal r (more content not included)... Normal [facility] Orthopedic Progress Noteon 1 12-16-2022 Orthopedic Progress [...] br/min (OCT 16:) SBP 131 mmHg (OCT 16:) DBP 61 mmHg (OCT 16:00) SpO2 95 % (NOV 15 06:00) Weight 72 kg (OCT 16 06:00) Height 160.02 cm (OCT 15 13:51) BMI [...] Event Name Event Result Date/Time Ambulation Distance 10/16/23 06:00:00 Ambulation Distance 24 10/16/23 03:00:00 [...] Sanjeev Gallardo PA-C 10/16/23 07:41 EST Normal [facility] .eGFRon 09-25-2023 GFR/1.73 sq M.predicted MDRD (S/P/Bld) [Vol rate/Area] mL/min/{1.73_m2} Normal >=60 [facility] Comment on above: Result Comment: [facility] Laboratories have implemented the eGFR calculation approach [...] years Performed By: #### E GFR #### [address] [address] CBC w/ Diffon 09-25-2023 Erythrocyte distribution width (RBC) [Ratio] 12.6 % Normal 11.6-14.8 [facility] Comment on above: Performed By: #### C BC #### [address] [address] Hematocrit (Bld) [Volume fraction] 41.6 % Normal 36.0-46.0 [facility] Comment on above: Performed By: #### C BC #### [address] [address] Hemoglobin (Bld) [Mass/Vol] 14.4 g/dL Normal 12.0-16.0 [facility] Comment on above: Performed By: #### C BC #### [address] [address] MCH (RBC) [Entitic mass] 32.1 pg Normal 27.0-35.0 [facility] Comment on above: Performed By: #### C BC #### [address] [address] MCHC 34.6 % Normal 31.0-37.0 [facility] Comment on above: Performed By: #### C BC #### [address] [address] MCV (RBC) [Entitic vol] 92.9 fL Normal 80.0-100.0 [facility] Comment on above: Performed By: #### C BC #### [address] [address] Platelet 294 x10*3/mcL Normal 150-450 [facility] Comment on above: Performed By: #### C BC #### [address] [address] Platelet mean volume (Bld) [Entitic vol] 7.7 fL Normal 6.7-10.6 [facility] Comment on above: Performed By: #### C BC #### [address] [address] RBC 4.47 x10*6/mcL Normal 3.80-5.20 [facility] Comment on above: Performed By: #### C BC #### [address] [address] WBC 8.1 x10*3/mcL Normal 4.5-11.0 [facility] Comment on above: Performed By: #### C BC #### [address] [address] CMPon 09-25-2023 Albumin [Mass/Vol] 4.3 g/dL Normal 3.2-4.9 [facility] Comment on above: Performed By: #### C OMP #### [address] [address] Albumin/Globulin [Mass ratio] 1.4 {ratio} Normal 1.1-2.2 [facility] Comment on above: Performed By: #### C OMP #### [address] [address] Alk Phos 50 IU/L Normal 32-91 [facility] Comment on above: Performed By: #### C OMP #### [address] [address] ALT [Catalytic activity/Vol] 19 U/L Normal 14-54 [facility] Comment on above: Performed By: #### C OMP #### [address] [address] Anion gap [Moles/Vol] 10 mmol/L Normal 7-17 [facility] Comment on above: Performed By: #### C OMP #### [address] [address] AST [Catalytic activity/Vol] 16 U/L Normal 15-41 [facility] Comment on above: Performed By: #### C OMP #### [address] [address] Bili Total 1.1 mg/dL Normal 0.3-1.2 [facility] Comment on above: Performed By: #### C OMP #### [address] [address] Calcium [Mass/Vol] 9.5 mg/dL Normal 8.5-10.3 [facility] Comment on above: Performed By: #### C OMP #### [address] [address] Chloride [Moles/Vol] 106 mmol/L Normal 98-110 [facility] Comment on above: Performed By: #### C OMP #### [address] [place] [address] CO2 [Moles/Vol] 28 mmol/L Normal 22-32 [facility] Comment on above: Performed By: #### C OMP #### [address] [place] [address] Creatinine [Mass/Vol] 0.73 mg/dL Normal 0.44-1.03 [facility] Comment on above: Performed By: #### C OMP #### [address] [place] [address] Glucose [Mass/Vol] 95 mg/dL Normal 70-99 [facility] Comment on above: Performed By: #### C OMP #### [address] [place] [address] Potassium [Moles/Vol] 4.5 mmol/L Normal 3.4-4.8 [facility] Comment on above: Performed By: #### C OMP #### [address] [place] [address] Protein [Mass/Vol] 7.3 g/dL Normal 6.5-8.1 [facility] Comment on above: Performed By: #### C OMP #### [address] [address] Sodium [Moles/Vol] 140 mmol/L Normal 133-142 [facility] Comment on above: Performed By: #### C OMP #### [address] [address] Urea nitrogen [Mass/Vol] 16 mg/dL Normal 8-26 [facility] Comment on above: Performed By: #### C OMP #### [place] [id number] Urea nitrogen/Creatinine [Mass ratio] 21.9 mg/mg High 10.0-20.0 [facility] Comment on above: Performed By: #### C OMP #### [address] [address] Diff Autoon 09-25-2023 Baso Absolute 0.0 x10*3/mcL Normal 0.0-0.2 [facility] Comment on above: Performed By: #### . Automated Diff #### [address] [address] Basophils/100 WBC (Bld) 0.4 % Normal 0.0-1.5 [facility] Comment on above: Performed By: #### . Automated Diff #### [address] [address] Eos Absolute 0.2 x10*3/mcL Normal 0.0-0.4 [facility] Comment on above: Performed By: #### . Automated Diff #### [address] [address] Eosinophils/100 WBC (Bld) 2.0 % Normal 0.0-5.4 [facility] Comment on above: Performed By: #### . Automated Diff #### [address] [address] Lymph Absolute 1.7 x10*3/mcL Normal 1.0-4.8 [facility] Comment on above: Performed By: #### . Automated Diff #### [address] [address] Lymphocytes/100 WBC (Bld) 21.5 % Low 27.2-40.8 [facility] Comment on above: Performed By: #### . Automated Diff #### [address] [address] [place] Absolute 0.6 x10*3/mcL Normal 0.1-1.1 [facility] Comment on above: Performed By: #### . Automated Diff #### [address] [address] Monocytes/100 WBC (Bld) 6.8 % Normal 3.7-11.9 [facility] Comment on above: Performed By: #### . Automated Diff #### [address] [address] Neutro Absolute 5.6 x10*3/mcL Normal 1.8-7.7 [facility] Comment on above: Performed By: #### . Automated Diff #### [place] [id number] Neutro Auto 69.3 % Normal 47.2-70.8 [facility] Comment on above: Performed By: #### . Automated Diff #### [address] [address] CBC AUTO DIFFon 04-29-2023 BASO # 0.0 103/ul Normal 0.0-0.1 [facility] Comment on above: Performed By: #### C BC ####[facility] [address] [place], [place] [address]Dr. Roxi Núñez Basophils/100 WBC (Bld) 0.2 % Normal 0.2-2.0 [facility] Comment on above: Performed By: #### C BC ####[facility] [address] [place], [place] [address]Dr. Roxi Núñez EO # 0.0 103/ul Normal 0.0-0.7 [facility] Comment on above: Performed By: #### C BC ####[facility] Eq[address]ut[address] [place], [place] [address]Dr. Roxi Núñez Eosinophils/100 WBC (Bld) 0.0 % Critically low 0.9-7.0 [facility] Comment on above: Performed By: #### C BC ####[facility] N[address]fe[address] [place], [place] [address]Dr. Roxi Núñez Erythrocyte distribution width (RBC) [Ratio] 12.2 % Normal 11.0-15.0 [facility] Comment on above: Performed By: #### C BC ####[facility] [address] [place], [place] [address]Dr. Roxi Núñez Hematocrit (Bld) [Volume fraction] 43.0 % Normal 36.0-48.0 [facility] Comment on above: Performed By: #### C BC ####[facility] Wih[address] [place], [place] [address]Dr. Roxi Núñez Hemoglobin (Bld) [Mass/Vol] 14.4 g/dL Normal 12.0-16.0 [facility] Comment on above: Performed By: #### C BC ####[facility] Gqsm[address] [place], [place] [address]Dr. Roxi Núñez IG # 0.02 10e3/ul Normal 0.00-0.03 [facility] Comment on above: Performed By: #### C BC ####[facility] [address] [place], [place] [address]Dr. Roxi Núñez IG % 0.2 % Normal 0.0-0.5 [facility] Comment on above: Performed By: #### C BC ####[facility] H[address] [place], [place] [address]DrDaisy Núñez LYMPH # 0.5 103/ul Critically low 1.2-3.8 [facility] Comment on above: Performed By: #### C BC ####[facility] Dw[address]wwvf[address] [place], [place] [address]Dr. Roxi Núñez Lymphocytes/100 WBC (Bld) 5.0 % Critically low 20.5-60.0 [facility] Comment on above: Performed By: #### C BC ####[facility] [address] [place] [address]DrDaisy Núñez MANUAL DIFF REQ NO Normal [facility] Comment on above: Performed By: #### C BC ####[facility] I[address]im[address] [place], [place] [address]Dr. Roxi Núñez MCH (RBC) [Entitic mass] 30.6 pg Normal 26.7-34.0 [facility] Comment on above: Performed By: #### C BC ####[facility] [address] [place], [place] [address]Dr. Roxi Núñez MCHC (RBC) [Mass/Vol] 33.5 g/dL Normal 29.9-35.2 [facility] Comment on above: Performed By: #### C BC ####[facility] M[address] [place], [place] [address]DrDaisy Núñez MCV (RBC) [Entitic vol] 91.3 fL Normal 81.0-99.0 [facility] Comment on above: Performed By: #### C BC ####[facility] M[address] [place], [place] [address]DrDaisy Núñez MONO # 1.1 103/ul Critically high 0.3-0.8 [facility] Comment on above: Performed By: #### C BC ####[facility] [address] [place], [place] [address]DrDaisy Núñez Monocytes/100 WBC (Bld) 10.5 % Normal 1.7-12.0 [facility] Comment on above: Performed By: #### C BC ####[facility] Wzr[address]xc[address] [place], [place] [address]DrDaisy Núñez NEUT # 8.4 103/ul Critically high 1.4-6.5 [facility] Comment on above: Performed By: #### C BC ####[facility] [address] [place], [place] [address]DrDaisy Núñez Neutrophils/100 WBC (Bld) 84.1 % Critically high 43.0-75.0 [facility] Comment on above: Performed By: #### C BC ####[facility] [address] [place] [address]Dr. Roxi Núñez Platelet mean volume (Bld) [Entitic vol] 9.4 fL Critically low 9.5-13.5 [facility] Comment on above: Performed By: #### C BC ####[facility] [address] [place] [address]Dr. Roxi Núñez PLT 253 103/ul Normal 150-450 [facility] Comment on above: Performed By: #### C BC ####[facility] [address] [place], [place] [address]Dr. Roxi Núñez RBC 4.71 106/ul Normal 4.20-5.40 [facility] Comment on above: Performed By: #### C BC ####[facility] Ir[address] [place], [place] [address]Dr. Roxi Núñez WBC 10.0 103/ul Normal 4.0-11.0 [facility] Comment on above: Performed By: #### C BC ####[facility] [address]qy[address] [place], [place] [address]Dr. Roxi Núñez Covid-19 PCR (CVDTB)on 04-02 SARS-CoV-2 (COVID-19) RNA ANNIKA+probe Ql (Unsp spec) Not detected Normal NOT DETECTED [facility] Comment on above: Performed By: #### C VDTBH #### [facility] [address] [place] [address] Dr. Roxi Núñez ER URINE PROFILEon 3 Bilirubin Ql (U) Negative Normal NEGATIVE [facility] Comment on above: Performed By: #### FABBY VILLALBA #### [facility] [address] [place] [address] Dr. Roxi Núñez Clarity (U) SL CLOUDY Abnormal CLEAR [facility] Comment on above: Performed By: #### FABBY VILLALBA #### [facility] [address] [place] [address] [address] Roxi Núñez Color (U) YELLOW Normal YELLOW [facility] Comment on above: Performed By: #### Virgil KEVIN UMICRO #### [facility] [address] [place] [address] Dr. Roxi ARENAS A micrscopic examination will be performed if indicated. Normal [facility] Comment on above: Performed By: #### Virgil KEVIN UMICRO #### [facility] [address] [place] [address] Dr. Roxi Núñez Glucose Ql (U) Negative Normal NEGATIVE [facility] Comment on above: Performed By: #### Virgil KEVIN UMICRO #### [facility] [address] [place] [address] Dr. Roxi Núñez Hemoglobin Ql (U) LARGE Abnormal NEGATIVE [facility] Comment on above: Performed By: #### Virgil KEVIN UMICRO #### [facility] [address] [place] [address] Dr. Roxi Núñez Ketones Ql (U) Negative Normal NEGATIVE [facility] Comment on above: Performed By: #### Virgil KEVIN UMICRO #### [facility] [address] [place] [address] Dr. Roxi Núñez LEUKOCYTES Negative Normal NEGATIVE [facility] Comment on above: Performed By: #### Virgil KEVIN UMICRO #### [facility] [address] [place] [address] Dr. Roxi Núñez Nitrite Ql (U) Negative Normal NEGATIVE [facility] Comment on above: Performed By: #### Virgil KEVIN UMICRO #### [facility] [address] [place] [address] Dr. Roxi Núñez pH (U) 5.5 [pH] Normal 5-9 [facility] Comment on above: Performed By: #### Virgil KEVIN, UMICRO #### [facility] [address] [place] [address] Dr. Roxi Núñez Protein (U) [Mass/Vol] 30 mg/dL Abnormal NEGATIVE/ TRACE [facility] Comment on above: Performed By: #### Virgil [facility]IN [facility] #### [facility] [address] [place] [address] [address] Roxi Núñez SPEC GRAVITY 1.030 Abnormal 1.005-<=1.025 [facility] Comment on above: Performed By: #### E [facility]TH [facility] #### [facility] [address] [place] [address] [address] Roxi Núñez UR MICRO IND INDICATED Normal [facility] Comment on above: Performed By: #### Virgil KEVIN [facility] #### [facility] [address] [place] [address] [address] Roxi Núñez Urobilinogen Qn (U) 0.2 {Bg'U}/dL Normal 0.2 - 1. 0 [facility] Comment on above: Performed By: #### Virgil KEVIN [facility] #### [facility] [address] [place] [address] [address] Roxi Núñez GI PANEL (PCR)on 04-29-2023 Adenovirus F 40/41 Not detected Normal NOT DETECTED [facility] Comment on above: Performed By: #### G IPANEL ####[facility] [address] [place], [place] [address]Dr. Roxi Núñez Astrovirus Not detected Normal NOT DETECTED [facility] Comment on above: Performed By: #### G IPANEL ####[facility] [address] [place], [place] [address]Dr. Roxi Núñez C. Diff toxin A/B Not detected Normal NOT DETECTED [facility] Comment on above: Performed By: #### G IPANEL ####[facility] [address] [place] [address]Dr. Roxi Núñez Campylobacter Not detected Normal NOT DETECTED [facility] Comment on above: Performed By: #### G IPANEL ####[facility] [address] [place] [address]Dr. Roxi Núñez Cryptosporidium Not detected Normal NOT DETECTED [facility] Comment on above: Performed By: #### G IPANEL ####[facility] [address] [place], [place] [address]Dr. Roxi Núñez Cyclos. Cayetanensis Not detected Normal NOT DETECTED [facility] Comment on above: Performed By: #### G IPANEL ####[facility] J[address] [place], [place] [address]Dr. Roxi Núñez E. Coli O157 Not Applicable Normal Not Applicable [facility] Comment on above: Performed By: #### G IPANEL ####[facility] Inpm[address] [place], [place] [address]Dr. Roxi Núñez E. histolytica Not detected Normal NOT DETECTED [facility] Comment on above: Performed By: #### G IPANEL ####[facility] Kr[address]flyoa[address] [place], [place] [address]Dr. Roxi Núñez EAEC Not detected Normal NOT DETECTED [facility] Comment on above: Performed By: #### G IPANEL ####[facility] [address] [place], [place] [address]Dr. Roxi Núñez EIEC Not detected Normal NOT DETECTED [facility] Comment on above: Performed By: #### G IPANEL ####[facility] Sz[address] [place], [place] [address]Dr. Roxi Núñez EPEC Not detected Normal NOT DETECTED [facility] Comment on above: Performed By: #### G IPANEL ####[facility] Ez[address] [place], [place] [address]Dr. Roxi Núñez ETEC Not detected Normal NOT DETECTED [facility] Comment on above: Performed By: #### G IPANEL ####[facility] [address]xos[address] [place], [place] [address]Dr. Roxi Núñez G. Lamblia Not detected Normal NOT DETECTED [facility] Comment on above: Performed By: #### G IPANEL ####[facility] [address]jp[address] [place], [place] [address]Dr. Roxi Núñez GIPANEL CONTROLS PASSED Normal [facility] Comment on above: Performed By: #### G IPANEL ####[facility] Keud[address] [place], [place] [address]Dr. Yilan Núñez GIPNL ABRAHAM HEADER GI PANEL BACTERIA Normal [facility] Comment on above: Performed By: #### G IPANEL ####[facility] [address] [place] [address]Dr. Roxi RODRIGUEZHD ECOLI GI PANEL DIARRHEAGENIC E.COLI / SHIGELLA Normal [facility] Comment on above: Performed By: #### G IPANEL ####[facility] N[address]hwm[address]fp[address] [place], [place] [address]Dr. Roxi AWANHD INFO SEE BELOW Normal [facility] Comment on above: Result Comment: EAEC - Enteroaggregative E. Coli EPEC- Enteropathogenic E. Coli ETEC- Enterotoxigenic E. Coli lt/st STEC- Shigella-like toxin-producing E. Coli stx1/stx2 EIEC- Shigella/Enteroinvasive E. Coli Performed By: #### G IPANEL ####[facility] [address] [place], [place] [address]Dr. Roxi AWANNLHD PARASITES GI PANEL PARASITES Normal [facility] Comment on above: Performed By: #### G IPANEL ####[facility] [address] [place], [place] [address]Dr. Roxi AWANHD VIRUS GI PANEL VIRUSES Normal [facility] Comment on above: Performed By: #### G IPANEL ####[facility] R[address]ssjs[address] [place], [place] [address]Dr. Roxi Núñez Norovirus GI/GII Not detected Normal NOT DETECTED [facility] Comment on above: Performed By: #### G IPANEL ####[facility] [address]fq[address] [place], [place] [address]Dr. Roxi Núñez P. Shigelloides Not detected Normal NOT DETECTED [facility] Comment on above: Performed By: #### G IPANEL ####[facility] Xypyr[address]vii[address] [place], [place] [address]Dr. Roxi Núñez Rotavirus A Detected Abnormal NOT DETECTED [facility] Comment on above: Performed By: #### G IPANEL ####[facility] [address] [place], [place] [address]Dr. Roxi Núñez Salmonella Not detected Normal NOT DETECTED [facility] Comment on above: Performed By: #### G IPANEL ####[facility] Z[address] [place], [place] [address]Dr. Roxi Núñez Sapovirus Not detected Normal NOT DETECTED [facility] Comment on above: Performed By: #### G IPANEL ####[facility] At[address] [place], [place] [address]Dr. Roxi Núñez STEC Not detected Normal NOT DETECTED [facility] Comment on above: Performed By: #### G IPANEL ####[facility] Nrednr[address] [place], [place] [address]Dr. Roxi Núñez Vibrio Not detected Normal NOT DETECTED [facility] Comment on above: Performed By: #### G IPANEL ####[facility] V[address] [place], [place] [address]Dr. Roxi Núñez Vibrio Cholera Not detected Normal NOT DETECTED [facility] Comment on above: Performed By: #### G IPANEL ####[facility] Z[address]wzs[address] [place], [place] [address]Dr. Roxi Núñez Y. Enterocolitica Not detected Normal NOT DETECTED [facility] Comment on above: Performed By: #### G IPANEL ####[facility] [address] [place], [place] [address]Dr. Roxi Núñez LACTATE/LACTIC ACIDon 2022 Lactate [Moles/Vol] 2.6 mmol/L Critically high 0.4-2.0 [facility] Comment on above: Performed By: #### L ACT #### [facility] [address] [place] [address] Dr. Roxi Núñez LIPASEon 04-29-2023 Lipase [Catalytic activity/Vol] 51.0 U/L Critically low 73.0-393.0 [facility] Comment on above: Performed By: #### L IPA, CMP, HSTROPN #### [facility] [address] [place] [address] Dr. Roxi Núñez PROF 14(COMP METB)on 023 Albumin [Mass/Vol] 3.5 g/dL Normal 3.4-5.0 [facility] Comment on above: Performed By: #### L IPA, CMP, HSTROPN #### [facility] [address] [place] [address] Dr. Roxi Núñez Albumin/Globulin [Mass ratio] 0.9 {ratio} Normal [facility] Comment on above: Performed By: #### L IPA, CMP, HSTROPN #### [facility] [address] [place] [address] Dr. Roxi Núñez ALP [Catalytic activity/Vol] 64 U/L Normal 46-116 [facility] Comment on above: Performed By: #### L IPA, CMP, HSTROPN #### [facility] [address] [place] [address] Dr. Roxi Núñez ALT [Catalytic activity/Vol] 27 U/L Normal 14-59 [facility] Comment on above: Performed By: #### L IPA, CMP, HSTROPN #### [facility] [address] [place] [address] Dr. Roxi Núñez Anion gap [Moles/Vol] 13.9 mmol/L Normal [facility] Comment on above: Performed By: #### L IPA, CMP, HSTROPN #### [facility] [address] [place] [address] Dr. Roxi Núñez AST [Catalytic activity/Vol] 19 U/L Normal 15-37 [facility] Comment on above: Performed By: #### L IPA, CMP, HSTROPN #### [facility] [address] [place] [address] Dr. Roxi Núñez Bilirubin [Mass/Vol] 0.4 mg/dL Normal 0.2-1.0 [facility] Comment on above: Performed By: #### L IPA, CMP, HSTROPN #### [facility] [address] [place] [address] Dr. Roxi Núñez Calcium [Mass/Vol] 8.7 mg/dL Normal 8.5-10.[address] [facility] Comment on above: Performed By: #### L IPA, CMP, HSTROPN #### [facility] [address] [address] [address] Roxi Núñez Chloride [Moles/Vol] 99 mmol/L Normal 98-107 [facility] Comment on above: Performed By: #### L IPA, CMP, HSTROPN #### [facility] [address] [address] [address] Roxi Núñez CO2 [Moles/Vol] 23.2 mmol/L Normal 21.0-32.0 [facility] Comment on above: Performed By: #### L IPA, CMP, HSTROPN #### [facility] [address] [address] [address] Roxi Núñez Creatinine [Mass/Vol] 0.95 mg/dL Normal 0.55-1.02 [facility] Comment on above: Performed By: #### L IPA, CMP, HSTROPN #### [facility] [address] [address] [address] Roxi Núñez EGFR-AF MALDIVIAN >60 Normal >=60 [facility] Comment on above: Performed By: #### L IPA, CMP, HSTROPN #### [facility] [address] [address] [address] Roxi Núñez EGFR-NON AF MALDIVIAN 59 mL/min/1.73m2 Critically low >=60 [facility] Comment on above: Performed By: #### L IPA, CMP, HSTROPN #### [facility] [address] [address] [address] Roxi Núñez Globulin (S) [Mass/Vol] 3.9 g/dL Normal [facility] Comment on above: Performed By: #### L IPA, CMP, HSTROPN #### [facility] [address] [address] [address] Roxi Núñez Glucose [Mass/Vol] 122 mg/dL Critically high 74-106 T [facility] Comment on above: Performed By: #### L IPA, CMP, HSTROPN #### [facility] [address] [address] [address] Roxi Núñez Potassium [Moles/Vol] 3.1 mmol/L Critically low 3.5-5.1 [facility] Comment on above: Performed By: #### L IPA, CMP, HSTROPN #### [facility] [address] [place] [address] Dr. Roxi Núñez Protein [Mass/Vol] 7.4 g/dL Normal 6.4-8.2 [facility] Comment on above: Performed By: #### L IPA, CMP, HSTROPN #### [facility] [address] [place] [address] Dr. Roxi Núñez Sodium [Moles/Vol] 133 mmol/L Critically low 136-145 Th [facility] Comment on above: Performed By: #### L IPA, CMP, HSTROPN #### [facility] [address] [place] [address] Dr. Roxi Núñez Urea nitrogen [Mass/Vol] 17.0 mg/dL Normal 7.0-18.0 [facility] Comment on above: Performed By: #### L IPA, CMP, HSTROPN #### [facility] [address] [place] [address] Dr. Roxi Núñez Urea nitrogen/Creatinine [Mass ratio] 17.9 mg/mg Normal [facility] Comment on above: Performed By: #### L IPA, CMP, HSTROPN #### [facility] [address] [place] [address] Dr. Roxi Núñez SYMPTOMATIC COVID-19 ANTIGEN on 04-29-2023 EUA Statement SEE BELOW Normal [facility] Comment on above: Result Comment: This [...] is revoked sooner. Performed By: #### C MARTINEZAGS ####[facility] [address] [id number]. Roxi Núñez SARS-CoV-2 (COVID-19) RNA ANNIKA+probe Ql (Unsp spec) Negative Normal NEGATIVE [facility] Comment on above: Performed By: #### C VDAGS ####[facility] [address] [id number]. Roxi Núñez TROPONIN, HIGH SENSITIVITYon 04-29-2023 HSTROP 5.6 pg/mL Normal 4.0-51.3 [facility] Comment on above: Result Comment: CUT- OFF POINTS HAVE BEEN ESTABLISHED BASED ON THE FOURTH UNIVERSAL DEFINITIONS OF MYOCARDIAL INFARCTION. THE UPPER REFERENCE LIMIT (URL) OF TROPONIN, DEFINED THE 99TH PERCENTILE OF cTnI DISTRIBUTION IN A REFERENCE POPULATION, HAS BEEN CONFIRMED THE DECISION THRESHOLD FOR CO DIAGNOSIS. Performed By: #### L IPA, CMP, HSTROPN #### [facility] [address] [address] [address] Roxi Núñez URINE MICROSCOPIC ONLYon BACTERIA NONE SEEN Normal NONE SEEN [facility] Comment on above: Performed By: #### JADEN VILLALBARO #### [facility] [address] [place] [address] Dr. Roxi Núñez Bacteria identified Cx Nom (U) NOT INDICATED Normal [facility] Comment on above: Performed By: #### Virgil KEVIN UMICRO #### [facility] [address] [place] [address] Dr. Roxi Núñez CAST SEEN Abnormal NONE SEEN [facility] Comment on above: Performed By: #### Virgil KEVIN UMICRO #### [facility] [address] [place] [address] Dr. Roxi Núñez Crystals LM Nom (Urine sed) NONE SEEN Normal NONE SEEN [facility] Comment on above: Performed By: #### Virgil KEVIN UMICRO #### [facility] [address] [place] [address] Dr. Roxi Núñez Epithelial cells LM Ql (Urine sed) FEW Abnormal NONE SEEN /RARE [facility] Comment on above: Performed By: #### E RUR UMICRO #### [facility] [address] [address] [address] Roxi Núñez MUCOUS MODERATE Abnormal NONE SEEN [facility] Comment on above: Performed By: #### E RUR, UMICRO #### [facility] [address] [address] [address] Roxi Núñez RBC 5-10 Abnormal 0-2 [facility] Comment on above: Performed By: #### E RUR UMICRO #### [facility] [address] [place] [address] Dr. Roxi Núñez WBC NONE SEEN Normal NONE SEEN [facility] Comment on above: Performed By: #### E RUR, UMICRO #### [facility] [address] [place] [address] Dr. Roxi Núñez XR ABD FLAT UP_PA Peiro 04-29 XR ABD FLAT UP_PA CH EXAM: [...] AMALIA BROWNE Date: 2023-04-29 15:09 Normal [facility] FREE T4on 12-05-2022 Free T4 [Mass/Vol] 1.16 ng/dL Normal 0.76-1.46 [facility] Comment on above: Performed By: #### F T4 #### [facility] [address] [place] [address] Dr. Roxi Núñez LIPID PROFILEon 12-05-2022 CHOL-HDL RATIO NORM SEE BELOW Normal [facility] Comment on above: Result Comment: 3.3 - 4.4 LOW RISK 4.4 - 7.1 AVERAGE RISK 7.1 - 11.0 MODERATE RISK >11.0 HIGH RISK Performed By: #### T SH, CMP, LIPID ####[facility] [address] [id number]. Roxi Núñez Cholesterol [Mass/Vol] 153 mg/dL Normal <=200 [facility] Comment on above: Performed By: #### T SH, CMP, LIPID ####[facility] [address] [id number]. Roxi Núñez Cholesterol in HDL [Mass/Vol] 71 mg/dL Critically high 40-60 [facility] Comment on above: Performed By: #### T SH, CMP, LIPID ####[facility] [address] [id number]. Roxi Núñez Cholesterol in LDL [Mass/Vol] 67.8 mg/dL Normal [facility] Comment on above: Performed By: #### T SH, CMP, LIPID ####[facility] [address] [id number]. Roxi Núñez Cholesterol.total/C holesterol in HDL [Mass ratio] 2.2 {ratio} Normal [facility] Comment on above: Performed By: #### T SH, CMP, LIPID ####[facility] [address] [id number]. Roxi Núñez HDL NORMAL > or = 60 mg/dl - LO W CARDIOVASCULAR RISK <40 mg/dl - HIGH CARDIOVASCULAR RISK Normal [facility] Comment on above: Performed By: #### T SH, CMP, LIPID ####[facility] [address] [id number]. Roxi Núñez LDL CALC NORMAL SEE BELOW Normal [facility] Comment on above: Result Comment: <100 mg/dl OPTIMAL 100 - 129 mg/dl NEAR OR ABOVE OPTIMAL 130 - 159 mg/dl BORDERLINE HIGH 160 - 189 mg/dl HIGH >190 mg/dl VERY HIGH Performed By: #### T SH, CMP, LIPID ####[facility] [address] [place], [place] [address]Hp. Roxi Núñez Triglyceride [Mass/Vol] 71 mg/dL Normal <=150 [facility] Comment on above: Performed By: #### T SH, CMP, LIPID ####[facility] [address] [place], [place] [address]Eg. Roxi Núñez VLDL CALC 14.2 mg/dL Normal [facility] Comment on above: Performed By: #### T SH, CMP, LIPID ####[facility] [address] [place], [place] [address]Jq. Roxi Núñez MG MAMM SCREEN 3D ANISHA CADon 12-05-2022 MG MAMM SCREEN 3D ANISHA CAD Patient: MAKENZIE MILLER Exam Date: 12/05/2022 : 1955 Gender:F Ordering : DR ARIANA FENTON Admission #: [id number] Family : Order #: [id number] CLICK HERE TO VIEW EXAM RADIOLOGY REPORT [...] lung cancer at age 82. LOCATION: [facility] BREAST COMPOSITION: Heterogeneously dense,which may obscure small [...] PALPABLE LUMP SHOULD BE BIOPSIED. Dictated by: Sancho Greco M.D. on 2022 at 13:24 Approved by: Sancho Greco M.D. on 2022 at 13:27 Normal [facility] PROF 14(COMP METB)on 023 Albumin [Mass/Vol] 3.8 g/dL Normal 3.4-5.[address] [facility] Comment on above: Performed By: #### T SH, CMP, LIPID ####[facility] [address] [address]Dr. Roxi Núñez Albumin/Globulin [Mass ratio] 1.1 {ratio} Normal [facility] Comment on above: Performed By: #### T SH, CMP, LIPID ####[facility] [address] [address]Dr. Roxi Núñez ALP [Catalytic activity/Vol] 57 U/L Normal 46-116 [facility] Comment on above: Performed By: #### T SH, CMP, LIPID ####[facility] [address] [address]Dr. Roxi Núñez ALT [Catalytic activity/Vol] 20 U/L Normal 14-59 [facility] Comment on above: Performed By: #### T SH, CMP, LIPID ####[facility] [address] [address]Dr. Roxi Núñez Anion gap [Moles/Vol] 10.5 mmol/L Normal [facility] Comment on above: Performed By: #### T SH, CMP, LIPID ####[facility] [address] [address]Dr. Roxi Núñez AST [Catalytic activity/Vol] 13 U/L Critically low 15-37 [facility] Comment on above: Performed By: #### T SH, CMP, LIPID ####[facility] [address] [address]Dr. Roxi Núñez Bilirubin [Mass/Vol] 0.9 mg/dL Normal 0.2-1.0 [facility] Comment on above: Performed By: #### T SH, CMP, LIPID ####[facility] [address] [address]Dr. Roxi Núñez Calcium [Mass/Vol] 9.1 mg/dL Normal 8.5-10.[address] [facility] Comment on above: Performed By: #### T SH, CMP, LIPID ####[facility] [address] [id number]. Roxi Núñez Chloride [Moles/Vol] 105 mmol/L Normal 98-107 [facility] Comment on above: Performed By: #### T SH, CMP, LIPID ####[facility] [address] [id number]. Roxi Núñez CO2 [Moles/Vol] 29.6 mmol/L Normal 21.0-32.0 [facility] Comment on above: Performed By: #### T SH, CMP, LIPID ####[facility] [address] [address]Dr. Roxi Núñez Creatinine [Mass/Vol] 0.60 mg/dL Normal 0.55-1.02 [facility] Comment on above: Performed By: #### T SH, CMP, LIPID ####[facility] [address] [address]Dr. Roxi Núñez EGFR-AF MALDIVIAN >60 Normal >=60 [facility] Comment on above: Performed By: #### T SH, CMP, LIPID ####[facility] [address] [address]Dr. Roxi Núñez EGFR-NON AF MALDIVIAN >60 Normal >=60 [facility] Comment on above: Performed By: #### T SH, CMP, LIPID ####[facility] [address] [address]Dr. Roxi Núñez Globulin (S) [Mass/Vol] 3.6 g/dL Normal [facility] Comment on above: Performed By: #### T SH, CMP, LIPID ####[facility] [address] [address]Dr. Roxi Núñez Glucose [Mass/Vol] 94 mg/dL Normal 74-[address] [facility] Comment on above: Performed By: #### T SH, CMP, LIPID ####[facility] [address] [address]Dr. Roxi Núñez Potassium [Moles/Vol] 4.1 mmol/L Normal 3.5-5.1 [facility] Comment on above: Performed By: #### T SH, CMP, LIPID ####[facility] [address] [address]Dr. Roxi Núñez Protein [Mass/Vol] 7.4 g/dL Normal 6.4-8.2 [facility] Comment on above: Performed By: #### T SH, CMP, LIPID ####[facility] [address] [address]Dr. Roxi Núñez Sodium [Moles/Vol] 141 mmol/L Normal 136-[address] [facility] Comment on above: Performed By: #### T SH, CMP, LIPID ####[facility] [address] [address]Dr. Roxi Núñez Urea nitrogen [Mass/Vol] 16.0 mg/dL Normal 7.0-18.0 [facility] Comment on above: Performed By: #### T SH, CMP, LIPID ####[facility] [address] [address]Dr. Roxi Núñez Urea nitrogen/Creatinine [Mass ratio] 26.7 mg/mg Normal [facility] Comment on above: Performed By: #### T SH, CMP, LIPID ####[facility] [address] [address]Dr. Roxi Núñez TSHon 12-05-2022 TSH 1.335 uIU/mL Normal 0.358-3.740 [facility] Comment on above: Performed By: #### T SH, CMP, LIPID ####[facility] [address] [address]Dr. Roxi Núñez CBC AUTO DIFFon 06-06-2022 BASO # 0.0 103/ul Normal 0.0-0.1 [facility] Comment on above: Performed By: #### D ATCBC #### [facility] [address] [address] [address] Roxi Núñez Basophils/100 WBC (Bld) 0.2 % Normal 0.2-2.0 [facility] Comment on above: Performed By: #### D ATCBC #### [facility] [address] [place] [address] Dr. Roxi Núñez EO # 0.1 103/ul Normal 0.0-0.7 [facility] Comment on above: Performed By: #### D ATCBC #### [facility] [address] [place] [address] Dr. Roxi Núñez Eosinophils/100 WBC (Bld) 0.6 % Critically low 0.9-7.0 [facility] Comment on above: Performed By: #### D ATCBC #### [facility] [address] [place] [address] Dr. Roxi Núñez Erythrocyte distribution width (RBC) [Ratio] 11.8 % Normal 11.0-15.0 [facility] Comment on above: Performed By: #### D ATCBC #### [facility] [address] [place] [address] Dr. Roxi Núñez Hematocrit (Bld) [Volume fraction] 39.3 % Normal 36.0-48.0 [facility] Comment on above: Performed By: #### D ATCBC #### [facility] [address] [place] [address] Dr. Roxi Núñez Hemoglobin (Bld) [Mass/Vol] 13.1 g/dL Normal 12.0-16.0 [facility] Comment on above: Performed By: #### D ATCBC #### [facility] [address] [place] [address] Dr. Roxi Núñez IG # 0.04 10e3/ul Critically high 0.00-0.03 [facility] Comment on above: Performed By: #### D ATCBC #### [facility] [address] [place] [address] Dr. Roxi Núñez IG % 0.3 % Normal 0.0-0.5 [facility] Comment on above: Performed By: #### D ATCBC #### [facility] [address] [place] [address] Dr. Roxi Núñez LYMPH # 2.8 103/ul Normal 1.2-3.8 [facility] Comment on above: Performed By: #### D ATCBC #### [facility] [address] [place] [address] Dr. Roxi Núñez Lymphocytes/100 WBC (Bld) 22.7 % Normal 20.5-60.0 [facility] Comment on above: Performed By: #### D ATCBC #### [facility] [address] [place] [address] Dr. Roxi Núñez MCH (RBC) [Entitic mass] 30.7 pg Normal 26.7-34.0 [facility] Comment on above: Performed By: #### D ATCBC #### [facility] [address] [place] [address] Dr. Roxi Núñez MCHC (RBC) [Mass/Vol] 33.3 g/dL Normal 29.9-35.2 [facility] Comment on above: Performed By: #### D ATCBC #### [facility] [address] [place] [address] Dr. Roxi Núñez MCV (RBC) [Entitic vol] 92.0 fL Normal 81.0-99.0 [facility] Comment on above: Performed By: #### D ATCBC #### [facility] [address] [place] [address] Dr. Roxi Núñez MONO # 0.9 103/ul Critically high 0.3-0.8 [facility] Comment on above: Performed By: #### D ATCBC #### [facility] [address] [place] [address] Dr. Roxi Núñez Monocytes/100 WBC (Bld) 7.5 % Normal 1.7-12.0 [facility] Comment on above: Performed By: #### D ATCBC #### [facility] [address] [place] [address] Dr. Roxi Núñez NEUT # 8.5 103/ul Critically high 1.4-6.5 [facility] Comment on above: Performed By: #### D ATCBC #### [facility] [address] [place] [address] Dr. Roxi Núñez Neutrophils/100 WBC (Bld) 68.7 % Normal 43.0-75.0 [facility] Comment on above: Performed By: #### D ATCBC #### [facility] [address] [address] [address] Roxi Núñez Platelet mean volume (Bld) [Entitic vol] 9.0 fL Critically low 9.5-13.5 [facility] Comment on above: Performed By: #### D ATCBC #### [facility] [address] [address] [address] Roxi Núñez PLT 350 103/ul Normal 150-450 [facility] Comment on above: Performed By: #### D ATCBC #### [facility] [address] [address] [address] Roxi Núñez RBC 4.27 106/ul Normal 4.20-5.40 [facility] Comment on above: Performed By: #### D ATCBC #### [facility] [address] [address] [address] Roxi Núñez WBC 12.4 103/ul Critically high 4.0-11.0 [facility] Comment on above: Performed By: #### D ATCBC #### [facility] [address] [address] [address] Roxi Núñez DAYAMI- BMP WITH LIPIDon 2021 Anion gap [Moles/Vol] 13.2 mmol/L Normal [facility] Comment on above: Performed By: #### D ATBMP ####[facility] [address] [id number]. Roxi Núñez Calcium [Mass/Vol] 9.2 mg/dL Normal 8.5-10.1 [facility] Comment on above: Performed By: #### D ATBMP ####[facility] [address] [id number]. Roxi Núñez Chloride [Moles/Vol] 103 mmol/L Normal 98-107 [facility] Comment on above: Performed By: #### D ATBMP ####[facility] [address] [id number]. Roxi Núñez Cholesterol [Mass/Vol] 134 mg/dL Normal <=200 [facility] Comment on above: Performed By: #### D ATBMP ####[facility] [address] [id number]. Roxi Núñez Cholesterol in HDL [Mass/Vol] 60 mg/dL Normal 40-60 [facility] Comment on above: Performed By: #### D ATBMP ####[facility] [address] [id number]. Roxi Núñez Cholesterol in LDL [Mass/Vol] 62.2 mg/dL Normal [facility] Comment on above: Performed By: #### D ATBMP ####[facility] [address] [address]Dr. Roxi Núñez CO2 [Moles/Vol] 27.5 mmol/L Normal 21.0-32.0 [facility] Comment on above: Performed By: #### D ATBMP ####[facility] [address] [place], [place] [address]Dr. Roxi Núñez Creatinine [Mass/Vol] 0.75 mg/dL Normal 0.55-1.02 [facility] Comment on above: Performed By: #### D ATBMP ####[facility] [address] [place], [place] [address]Dr. Roxi Núñez EGFR-AF MALDIVIAN >60 Normal >=60 [facility] Comment on above: Performed By: #### D ATBMP ####[facility] [address] [address]Dr. Roxi Wilton EGFR-NON AF MALDIVIAN >60 Normal >=60 [facility] Comment on above: Performed By: #### D ATBMP ####[facility] [address] [place] [id number]. Roxi Núñez Glucose [Mass/Vol] 100 mg/dL Normal 74-106 [facility] Comment on above: Performed By: #### D ATBMP ####[facility] [address] [place] [id number]. Еленаorlando Wilton HDL NORMAL > or = 60 mg/dl - LO W CARDIOVASCULAR RISK <40 mg/dl - HIGH CARDIOVASCULAR RISK Normal [facility] Comment on above: Performed By: #### D ATBMP ####[facility] [address] [address]Dr. Еленаorlando Wilton LDL CALC NORMAL SEE BELOW Normal [facility] Comment on above: Result Comment: <100 mg/dl OPTIMAL 100 - 129 mg/dl NEAR OR ABOVE OPTIMAL 130 - 159 mg/dl BORDERLINE HIGH 160 - 189 mg/dl HIGH >190 mg/dl VERY HIGH Performed By: #### D ATBMP ####[facility] [address] [address]Dr. Roxi Núñez Potassium [Moles/Vol] 3.7 mmol/L Normal 3.5-5.1 [facility] Comment on above: Performed By: #### D ATBMP ####[facility] [address] [place], [place] [address]Dr. Roxi Núñez Sodium [Moles/Vol] 140 mmol/L Normal 136-145 [facility] Comment on above: Performed By: #### D ATBMP ####[facility] [address] [address]Dr. Roxi Núñez Triglyceride [Mass/Vol] 59 mg/dL Normal <=150 [facility] Comment on above: Performed By: #### D ATBMP ####[facility] [address] [address]Dr. Roxi Núñez Urea nitrogen [Mass/Vol] 14.0 mg/dL Normal 7.0-18.0 [facility] Comment on above: Performed By: #### D ATBMP ####[facility] [address] [address]Dr. Roxi Núñez Urea nitrogen/Creatinine [Mass ratio] 18.7 mg/mg Normal [facility] Comment on above: Performed By: #### D ATBMP ####[facility] [address] [address]Dr. Roxi Núñez VLDL CALC 11.8 mg/dL Normal [facility] Comment on above: Performed By: #### D ATBMP ####[facility] [address] [place], [place] [address]Zg. Roxi Núñez [facility] METABOLIC PANE Mario 05-11-2021 Albumin [Mass/Vol] 4.1 g/dL Normal 3.6-5.1 [facility] Comment on above: Performed By: #### 7 600, 17464 #### [facility] of [place] [address] Em Physician: Luis Barbour MD Albumin/Globulin [Mass ratio] 1.6 {ratio} Normal 1.0-2.5 [facility] Comment on above: Performed By: #### 7 600, 37425 #### [facility] [place] [address] Em Physician: Luis Barbour MD ALP [Catalytic activity/Vol] 58 U/L Normal 37-153 [facility] Comment on above: Performed By: #### 7 600, 11223 #### [facility] of [place] [address] Em Physician: Luis Barbour MD ALT [Catalytic activity/Vol] 14 U/L Normal 6-29 [facility] Comment on above: Performed By: #### 7 600, 43810 #### [facility] [place] [address] Em Physician: Luis Barbour MD AST [Catalytic activity/Vol] 13 U/L Normal 10-35 [facility] Comment on above: Performed By: #### 7 600, 29350 #### [facility] [place] [address] Em Physician: Luis Barbour MD Bilirubin [Mass/Vol] 0.7 mg/dL Normal 0.2-1.2 [facility] Comment on above: Performed By: #### 7 600, 59056 #### [facility] [place] [address] Em Physician: Luis Barbour MD BUN/CREATININE RATIO NOT APPLICABLE Normal 6-22 [facility] Comment on above: Performed By: #### 7 600, 11504 #### [facility] of [address], [address] [place] [address] Em Physician: Luis Barbour MD Calcium [Mass/Vol] 9.3 mg/dL Normal 8.6-10.4 [facility] Comment on above: Performed By: #### 7 600, 53067 #### [facility] [address], [address] [place] [address] Em Physician: Luis Barbour MD Chloride [Moles/Vol] 105 mmol/L Normal 98-110 [facility] Comment on above: Performed By: #### 7 600, 34324 #### [facility] [address], [address] [place] [address] Em Physician: Luis Barbour MD CO2 [Moles/Vol] 29 mmol/L Normal 20-32 [facility] Comment on above: Performed By: #### 7 600, 46325 #### [facility] [address], [address] [place] [address] Em Physician: Luis Barbour MD Creatinine [Mass/Vol] 0.72 mg/dL Normal 0.50-0.99 [facility] Comment on above: Result Comment: For patients >49 years of age, the reference limit for Creatinine is approximately 13% higher for people identified as -Micronesian. Performed By: #### 7 600, [id number] #### [facility] [address], [address] [place] [address] Em Physician: Luis Barbour MD eGFR NON-AFR. MALDIVIAN 89 mL/min/1.73m2 Normal > OR = 60 [facility] Comment on above: Performed By: #### 7 600, 71859 #### [facility] [place] [address] Em Physician: Luis Barbour MD GFR/1.73 sq M.predicted among blacks MDRD (S/P/Bld) [Vol rate/Area] 103 mL/min/{1.73_m2} Normal > OR = 60 [facility] Comment on above: Performed By: #### 7 600, 70699 #### [facility] [place] [address] Em Physician: Luis Barbour MD Globulin (S) [Mass/Vol] 2.5 g/dL Normal 1.9-3.7 [facility] Comment on above: Performed By: #### 7 600, 99636 #### [facility] [place] [address] Em Physician: Luis Barbour MD Glucose [Mass/Vol] 100 mg/dL High 65-99 [facility] Comment on above: Result Comment: Fasting reference interval For someone without known diabetes, a glucose value between 100 and 125 mg/dL is consistent with prediabetes and should be confirmed with a follow-up test. Performed By: #### 7 600, 51249 #### [facility] [place] [address] Em Physician: Luis Barbour MD Potassium [Moles/Vol] 4.6 mmol/L Normal 3.5-5.3 [facility] Comment on above: Performed By: #### 7 600, 25425 #### [facility] [place] [address] Em Physician: Luis Barbour MD Protein [Mass/Vol] 6.6 g/dL Normal 6.1-8.1 [facility] Comment on above: Performed By: #### 7 600, 84123 #### [facility] [place] [address] Em Physician: Luis Barbour MD Sodium [Moles/Vol] 141 mmol/L Normal 135-146 [facility] Comment on above: Performed By: #### 7 600, 39360 #### [facility] [place] [address] Em Physician: Luis Barbour MD Urea nitrogen [Mass/Vol] 18 mg/dL Normal 7-25 [facility] Comment on above: Performed By: #### 7 600, 87278 #### [facility] [place] [id number] Em Physician: Luis Barbour MD LIPID PANEL, [facility] 05-02 Cholesterol [Mass/Vol] 152 mg/dL Normal <200 [facility] Comment on above: Order Comment: FASTI NG:YES FASTING: YES Performed By: #### 7 600, 35693 #### [facility] [address], [address] [place] [address] Em Physician: Luis Barbour MD Cholesterol in HDL [Mass/Vol] 56 mg/dL Normal > OR = 50 [facility] Comment on above: Order Comment: FASTI NG:YES FASTING: YES Performed By: #### 7 600, 22870 #### [facility] [address], [address] [place] [address] Em Physician: Luis Barbour MD Cholesterol in LDL [Mass/Vol] 81 mg/dL Normal [facility] Comment on above: Order Comment: FASTI NG:YES FASTING: YES Result Comment: Refe rence range: <100 Desirable range <100 mg/dL for primary prevention; <70 mg/dL for patients with CHD or diabetic patients with > or = 2 CHD risk factors. LDL-C is now calculated using the Nicolas-Dania calculation, which is a validated novel method providing better accuracy than the Friedewald equation in the estimation of LDL-C. Nicolas SAINZ et al. PASCUAL. 2013;310(19): 9217-0664 (http://education.[employer].Quri/faq/TCX223) Performed By: #### 7 600, 46717 #### [facility] [address], [address] [place] [address] Em Physician: Luis Barbour MD Cholesterol.total/C holesterol in HDL [Mass ratio] 2.7 {ratio} Normal <5.0 [facility] Comment on above: Order Comment: FASTI NG:YES FASTING: YES Performed By: #### 7 600, 02436 #### [facility] [address], [address] [place] [address] Em Physician: Luis Barbour MD NON HDL CHOLESTEROL 96 mg/dL (calc) Normal <130 [facility] Comment on above: Order Comment: FASTI NG:YES FASTING: YES Result Comment: For patients with diabetes plus 1 major ASCVD risk factor, treating to a non-HDL-C goal of <100 mg/dL (LDL-C of <70 mg/dL) is considered a therapeutic option. Performed By: #### 7 600, 71169 #### [facility] [address] [place] [address], [address] [place] [address] Em Physician: Luis Barbour MD Triglyceride [Mass/Vol] 72 mg/dL Normal <150 [facility] Comment on above: Order Comment: FASTI NG:YES FASTING: YES Performed By: #### 7 600, 27515 #### [facility] [address], [address] Em Physician: Luis Barbour MD Coding Summary.on 06-16-2020 Coding Summary. CODING DATE: 06/16/2020 FINAL [facility] STATUS: Home (Routine DC) PAYOR: Commercial [...] Audrey May Date Saved: 06/16/2020 07:01 pm Normal [facility] Physician Orderon 05-24-2020 Physician Order [id number] 1.00CD:127 Normal [facility] Vital Signs Date Time Vital Sign Value Performing Clinician Gurjit woods 01-19-2025 13:33-0500 Body height 160 cm Emelina Corcoran APRNYellowHammerBRIA Work Phone: [id number] 01-19-2025 13:33-0500 Body mass index (BMI) [Ratio] 27.22 kg/m2 Emelina Corcoran APRNYellowHammerBRIA Work Phone: [employer] [facility] 01-19-2025 13:33-0500 Body temperature 97.9 [degF] Emelina Corcoran APRN-MANAGER UTILIZATION REVIEW Work Phone: [facility] [employer] [facility] 01-19-2025 13:33-0500 Body weight 69.67 kg Emelina Corcoran APRN-MANAGER UTILIZATION REVIEW Work Phone: [facility] [employer] [facility] 01-19-2025 13:33-0500 Diastolic blood pressure 70 mm[Hg] Emelina Corcoran APRN-MANAGER UTILIZATION REVIEW Work Phone: [facility] [employer] [facility] 01-19-2025 13:33-0500 Heart rate 92 /min Emelina Corcoran APRN-MANAGER UTILIZATION REVIEW Work Phone: [facility] [employer] [facility] 01-19-2025 13:33-0500 Respiratory rate 18 /min Emelina Corcoran APRN-MANAGER UTILIZATION REVIEW Work Phone: [facility] [employer] [facility] 01-19-2025 13:33-0500 SaO2% (BldA) [Mass fraction] 99 % Emelina Corcoran APRN-MANAGER UTILIZATION REVIEW Work Phone: [facility] [employer] [facility] 01-19-2025 13:33-0500 Systolic blood pressure 130 mm[Hg] Emelina Corcoran APRN-MANAGER UTILIZATION REVIEW Work Phone: [facility] [employer] [facility] 12-11-2024 10:03-0500 Body height 160 cm Willy Gardner APRN-MANAGER UTILIZATION REVIEW Work Phone: [facility] [employer] [facility] 12-11-2024 10:03-0500 Body mass index (BMI) [Ratio] 27.6 kg/m2 Willy Gardner SENIOR CAREGIVER-MANAGER UTILIZATION REVIEW Work Phone: [facility] [employer] [facility] 12-11-2024 10:03-0500 Body temperature 97.7 [degF] Willy Gardner APRN-MANAGER UTILIZATION REVIEW Work Phone: [facility] [employer] [facility] 12-11-2024 10:03-0500 Body weight 70.67 kg Willy Gardner SENIOR CAREGIVER-MANAGER UTILIZATION REVIEW Work Phone: [facility] [employer] [facility] 12-11-2024 10:03-0500 Diastolic blood pressure 62 mm[Hg] Willy Gardner SENIOR CAREGIVER-MANAGER UTILIZATION REVIEW Work Phone: [facility] [employer] [facility] 12-11-2024 10:03-0500 Heart rate 75 /min Willysky Gardner SENIOR CAREGIVER-MANAGER UTILIZATION REVIEW Work Phone: [facility] [employer] [facility] 12-11-2024 10:03-0500 Respiratory rate 18 /min Willysky Gardner SENIOR CAREGIVER-MANAGER UTILIZATION REVIEW Work Phone: [facility] [employer] [facility] 12-11-2024 10:03-0500 SaO2% (BldA) [Mass fraction] 99 % Willy Gardner SENIOR CAREGIVER-MANAGER UTILIZATION REVIEW Work Phone: [facility] [employer] [facility] 12-11-2024 10:03-0500 Systolic blood pressure 130 mm[Hg] Willy Gardner SENIOR CAREGIVER-MANAGER UTILIZATION REVIEW Work Phone: [facility] 12-12-2023 08:26-0500 Body height 160 cm Willy Gardner SENIOR CAREGIVER-MANAGER UTILIZATION REVIEW Work Phone: [facility] [employer] [facility] 12-12-2023 08:26-0500 Body mass index (BMI) [Ratio] 26.93 kg/m2 Willy Gardner SENIOR CAREGIVER-MANAGER UTILIZATION REVIEW Work Phone: [facility] [employer] [facility] 12-12-2023 08:26-0500 Body temperature 98.1 [degF] Willy Gardner SENIOR CAREGIVER-MANAGER UTILIZATION REVIEW Work Phone: [facility] 12-12-2023 08:26-0500 Body weight 68.95 kg Willysky Gardner SENIOR CAREGIVER-MANAGER UTILIZATION REVIEW Work Phone: [facility] [employer] [facility] 12-12-2023 08:26-0500 Diastolic blood pressure 77 mm[Hg] Willy Gardner SENIOR CAREGIVER-MANAGER UTILIZATION REVIEW Work Phone: [facility] 12-12-2023 08:26-0500 Heart rate 89 /min Willysky Gardner SENIOR CAREGIVER-MANAGER UTILIZATION REVIEW Work Phone: [facility] 12-12-2023 08:26-0500 SaO2% (BldA) [Mass fraction] 98 % Willy Gardner SENIOR CAREGIVER-MANAGER UTILIZATION REVIEW Work Phone: [facility] 12-12-2023 08:26-0500 Systolic blood pressure 121 mm[Hg] Willy Gardner SENIOR CAREGIVER-MANAGER UTILIZATION REVIEW Work Phone: 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) Start: 01-19-2025 End: 01-19-2025 ambulatory [facility] Start: 12-30-2024 End: 12-30-2024 Bamboo flowsheet Farida Mike PA Work Phone: [facility] Start: 12-30-2024 End: 12-30-2024 Bamboo flowsheet Farida Mike PA Work Phone: [facility] Start: 12-30-2024 End: 12-30-2024 Office outpatient visit 15 minutes Farida Mike PA Work Phone: [facility] Comment on above: Melanocytic nevus of trunk (Primary Dx); Seborrheic keratosis; Dermatofibroma of left lower extremity; Dermatofibroma of right lower extremity; Shahid angioma; Lipoma, unspecified site; Lentigines; Actinic keratosis Start: 12-30-2024 End: 12-30-2024 ambulatory FARIDA MIKE Not Available Start: 12-23-2024 End: 12-23-2024 Refill Ashley Chow DO Work Phone: [facility] Comment on above: Mixed hyperlipidemia ; Benign essential hypertension Start: 12-11-2024 End: 12-11-2024 Office outpatient visit 15 minutes Willy Gardner SENIOR CAREGIVER-MANAGER UTILIZATION REVIEW Work Phone: [facility] - [facility] Comment on above: Benign essential hyp ertension (Primary Dx); Mixed hyperlipidemia; Osteopenia of multiple sites Start: 12-11-2024 End: 12-11-2024 ambulatory [facility] Start: 11-21-2024 End: 11-21-2024 Orders Only Willy Gardner SENIOR CAREGIVER-MANAGER UTILIZATION REVIEW Work Phone: [facility] Start: 11-17-2024 End: 11-21-2024 Refill Aysha López [facility] Medicine - Family Medicine Comment on above: Benign essential hyp ertension; Mixed hyperlipidemia Start: 11-11-2024 End: 11-16-2024 Refill Candice Sadia [facility] - Family Medicine Start: 10-02-2024 End: 10-02-2024 Orders Only Willy Gardner SENIOR CAREGIVER-MANAGER UTILIZATION REVIEW Work Phone: [facility] Comment on above: Encounter for screen ing mammogram for malignant neoplasm of breast (Primary Dx); Benign essential hypertension; Mixed hyperlipidemia; Acquired hypothyroidism; Wellness examination; Abnormal CBC Start: 10-02-2024 End: 10-02-2024 Patient encounter status Willy Gardner SENIOR CAREGIVER-MANAGER UTILIZATION REVIEW Work Phone: [facility] Start: 09-29-2024 End: 10-07-2024 Telephone encounter Willy Gardner SENIOR CAREGIVER-MANAGER UTILIZATION REVIEW Work Phone: [facility] Start: 06-24-2024 End: 06-24-2024 Refill Candice Sadia [facility] - Family Medicine Comment on above: Benign essential hyp ertension (Primary Dx); Mixed hyperlipidemia Start: 12-12-2023 End: 12-13-2023 ambulatory [facility] Start: 12-12-2023 End: 12-12-2023 Office outpatient visit 15 minutes Willy Gardner SENIOR CAREGIVER-MANAGER UTILIZATION REVIEW Work Phone: [facility] Comment on above: Gastroesophageal ref lux disease, unspecified whether esophagitis present (Primary Dx); S/P total knee replacement using cement, left; Benign essential hypertension Start: 11-18-2023 End: 11-19-2023 ambulatory ARIANA FENTON [facility] Start: 10-15-2023 End: 10-16-2023 ambulatory Sanjeev Gallardo Facility:[facility] Start: 10-09-2023 End: 10-10-2023 ambulatory Delfino Cota MD Facility:[facility] Start: 09-25-2023 End: 09-26-2023 ambulatory Delfino Cota MD Facility:[facility] Start: 04-29-2023 End: 04-29-2023 ambulatory OCTAVIA Villa Facility: Start: 12-05-2022 End: [address] ARIANA FENTON Facility: Start: 06-06-2022 End: 06-07-2022 ambulatory NONE LISTED REQUEST Facility: Procedures Date Procedure Procedure Detail Performing Clinician Start: 01-19-2025 Adult depression scr eening assessment Emelina Corcoran SENIOR CAREGIVER-[facility] Work Phone: Start: 12-30-2024 CRYOTHERAPY SKIN LESION Farida HERNANDEZ Work Phone: Start: 12-11-2024 Adult depression scr eening assessment Willy Gardner SENIOR CAREGIVER-[facility] Work Phone: Start: 12-08-2024 Mammography [facility] SENIOR CAREGIVER-MANAGER UTILIZATION REVIEW Work Phone: Start: 12-12-2023 Adult depression scr eening assessment Willysky Asifuch SENIOR CAREGIVER-[facility] Work Phone: Start: 2023 Mammography [facility] SENIOR CAREGIVER-[facility] Work Phone: Plan of Treatment Date Care Activity Detail Author Start: 01-19-2026 Adult BMI Screening Adult BMI Screen ing [facility] Start: 01-19-2026 Depression Screening Depression Scre ening [facility] Start: 01-19-2026 Fall Risk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
== END 2025-02-01 09:55 | disposition home or self-care (01) ==
LOC: RAD 09:54
PROVIDERS: PCP Internal Medicine; Visit Provider Nurse Practitioner
DX: M15.0 Primary generalized (osteo)arthritis (principal)
CPT/HCPCS: 73630